=== PATIENT | male | born 1945 | race Caucasian/White ===

== ENCOUNTER → 2021-12-18 12:24 | Outpatient (BNVA) | payer MEDICARE, SELFPAY | PROVIDERS: PCP Nurse Practitioner Family; Referring Provider Nurse Practitioner Family; Visit Provider Specialist | DX: G44.84 Primary exertional headache (principal); M47.16 Other spondylosis with myelopathy, lumbar region; Z98.1 Arthrodesis status | CPT/HCPCS: 99204; 99205 ==

== ENCOUNTER 2022-02-05 06:57 | Outpatient (CLI) | payer MEDICARE, SELFPAY ==
--- NOTE | 2022-02-05 08:00 | MR_ITS ---
WS: [id number] MRI HEAD WITHOUT CONTRAST TECHNIQUE: Sagittal T1, T2 axial, T2 axial FLAIR, axial and coronal T1 images, axial susceptibility w eighted imaging, axial diffusion weighted images, and coronal T2 images were obtained. CLINICAL INFORMATION: R51.9 - Headache, unspecified COMPARISON: None. FINDINGS: No evidence of restricted diffusion to suggest acute ischemia. Ventricular system and basal cisterns are patent. Mild small vessel changes. Mild to moderate parenchymal volume loss. 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 Normal vascular flow voids at the skull base. Pansinusitis wit h partial opacification of the paranasal sinuses. Inspissated secretions in the sphenoid sinuses. Rec ommend correlation for sinusitis including fungal sinusitis. Normal optic chiasm and pituitary infundibulum. Normal sella. Moderate symmetric atrophy temporal lob es and hippocampal formations. Normal cavernous sinuses and Meckel's cave. No hemosiderin on suscepti marlene weighted images. MR/MR head wo con* [id number] IMPRESSION: 1. No evidence of restricted diffusion to suggest acute ischemia. 2. Mild small vessel changes with mild to moderate parenchymal volume loss. 3. 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 4. Paranasal sinusitis with inspissated secretions in the sphenoid sinus. Matthew elation for sinusitis including fungal sinusitis. 5. Normal optic chiasm and pituitary infundibulum. 6. Moderate symmetric atrophy temporal lobes and hippocampal formations. 7. No hemosiderin on susceptibly weighted images.
--- NOTE | 2022-02-05 08:45 | MR_ITS ---
WS: [id number] MRI LUMBAR SPINE NONCONTRAST TECHNIQUE: Sagittal T1, T2 and STIR imaging. Axial T1 and T2 imaging. 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 FINDINGS: Mild lumbar curve. No acute compression. Slight anterolisthesis L4 on L5. L1-L2: Mild annular bulging. Mild facet arthropathy. Spinal canal and foramen are patent. L2-L3: Slight annular bulging. Mild facet arthropathy. Spinal canal and foramen are patent. L3-L4: Mild annular bulging. Moderate facet arthropathy with ligamentum flavum flavum hypertrophy. Mo derate to severe central canal stenosis. Impingement subarticular recess RIGHT greater than LEFT. Mod erate RIGHT foraminal narrowing with impingement on the exiting RIGHT L3 nerve root. L4-L5: Grade 1 anterolisthesis L4 on L5. Mild annular bulging with slight effacement of ventral theca l sac. Mild central canal stenosis. Evidence of prior laminectomy defects at this level. Mild bilater al foraminal narrowing. Moderate facet arthropathy ligamentum flavum hypertrophy. L5-S1: Mild annular bulging with a small annular tear. Slight effacement of ventral thecal sac. Spina l canal and foramen are patent. Mild facet arthropathy. Straightening of the normal cervical lordosis. Disc osteophyte protrusions C5-C6 and C6-C7 with mild to moderate central canal stenosis. Grade 1 anterolisthesis C7 on T1. Partially visualized lobulated soft tissue mass near the GE junction is indeterminant and incompletely visualized. This may represen t partially visualized intrathoracic stomach. Recommend further evaluation with CT chest. Visualized pelvic bony structures: Normal. Paravertebral soft tissues: Normal. MR/MR lumbar spine wo con* [id number] IMPRESSION: 1. Mild lumbar curve. No acute compression. Slight anterolisthesis L4 on L5. 2. Moderate to severe central canal stenosis L3-L4 due to disc bulging with fa cet arthropathy and ligamentum flavum hypertrophy. Slight impingement traversin g RIGHT greater than LEFT L4 nerve roots. 3. RIGHT L3-L4 foraminal protrusion impinges the exiting L3 nerve root with mo derate RIGHT foraminal narrowing. 4. Mild central canal stenosis L4-L5 with grade 1 anterolisthesis. Evidence of prior laminectomy defects at this level. 5. SAMY disc osteophyte protrusions in the cervical spine at C5-C6 and C6-C7 wi th mild to moderate central canal stenosis. Recommend further evaluation with c ervical spine MRI. 6. Lobulated soft tissue mass at the GE junction may represent partially visua lized intrathoracic stomach but indeterminant. Recommend further evaluation wit h CT chest.
== END 2022-02-05 06:58 | disposition home or self-care (01) ==
LOC: RAD 06:59
PROVIDERS: PCP Nurse Practitioner Family; Visit Provider Specialist
DX: R51.9 Headache, unspecified (principal); M47.16 Other spondylosis with myelopathy, lumbar region; M48.061 Spinal stenosis, lumbar region without neurogenic claudication; M51.26 Other intervertebral disc displacement, lumbar region; M25.78 Osteophyte, vertebrae; G31.9 Degenerative disease of nervous system, unspecified; I63.9 Cerebral infarction, unspecified
CPT/HCPCS: 70551; 72148

== ENCOUNTER 2022-03-13 14:21 | Inpatient (IN) | payer MEDICARE, SELFPAY ==
[2022-03-13] VITALS (38 sets, daily range): BP systolic 133–177; BP diastolic 78–93; PULSE 76–127; RESP 15–29; TEMP 36.7; O2SAT 91–98; BMI 30.2
--- NOTE | 2022-03-13 15:22 | CT_ITS ---
WS: [id number] CT HEAD TECHNIQUE: Noncontrast CT of the head obtained from the skullbase to the vertex. CLINICAL INFORMATION: headache COMPARISON: MRI February 05, 2022 DLP: 955.[address] scans at [facility] use at least one of these dose optimization techniques: automated e xposure control; mA and/or kV adjustment per patient size (includes targeted exams where dose is matc hed to clinical indication); or iterative reconstruction. FINDINGS: No evidence of intracranial hemorrhage or mass effect. Ventricular system and basal cisterns are landis nt. Mild small vessel changes with moderate parenchymal volume loss. No extra-axial fluid collections . No evidence of mass or mass effect. Chronic lacunar infarcts in the cerebellum. Pansinusitis similar in appearance to February 05, 2022. Partial opacification frontal sinuses and ethmoid air cells. Fluid within the maxillary sinuses. Head Porter shantel appearing opacification of the sphenoid sinuses with inspissated secretions and bony remodeling. Mastoid air cells are well aerated. CT/CT head wo con* [id number] IMPRESSION: 1. No evidence of intracranial hemorrhage or mass effect. 2. Mild small vessel changes. Moderate parenchymal volume loss. 3. Diffuse pansinusitis similar in appearance to MRI February 05, 2022. Fluid wit hin the maxillary sinuses with dense inspissated secretions in the sphenoid sin us. Partial opacification frontal sinuses and ethmoid air cells. Chronic bony remodeling suggestive of chronic or recurrent sinusitis. 4. No other significant findings.
--- NOTE | 2022-03-13 15:23 | ECG_ITS ---
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 Measurements Intervals [place] Rate: 80 P: 24 WY: 215 QRS: -66 QRSD: 166 T: 86 QT: 432 QTc: 500 Interpretive Statements SINUS RHYTHM WITH FIRST DEGREE AV BLOCK RIGHT BUNDLE BRANCH BLOCK LEFT VENTRICULAR HYPERTROPHY AND ST-T CHANGE ST DEPRESSION, CONSIDER SUBENDOCARDIAL INJURY No previous ECG available for comparison Electronically Signed On 03-13-2022 20:17:40 CDT by Cristela Green M.D. [id number]
[2022-03-13 15:27] LABS: Basophils # 0.1 10^3/uL (0.0-0.1); Basophils % 0.5 %; Eosinophils % 0.3 %; Hematocrit 39.4 % (42.0-52.0); Hemoglobin 12.4 g/dL (11.7-16.6); Lymphocytes # 1.1 10^3/uL (0.8-4.8); Lymphocytes % 8.3 %; Mean Corpuscular HGB Conc 31.5 g/dL (30.0-36.0); Mean Corpuscular Hemoglobin 24.7 pg (28.0-34.0); Mean Corpuscular Volume 78.5 fl (80-94); Mean Platelet Volume 11.8 fL (7.4-10.4); Monocytes # 1.2 10^3/uL (0.2-0.9); Monocytes % 8.8 %; Neutrophils # 10.98 10^3/uL (1.8-7.7); Neutrophils % 81.7 %; Nucleated Red Blood Cells % 0 %; Platelet Count 191 10^3/cmm (130-400); Red Blood Count 5.02 10^6/uL (4.1-5.3); Red Cell Distribution Width 15.1 % (12.1-15.1); White Blood Count 13.5 10^3/uL (4.0-10.0)
--- NOTE | 2022-03-13 15:50 | W.ED.HA ---
HPI - Headache General: Chief Complaint: Headache Stated Complaint: HEADACHE W/NAUSEA Time Seen by Provider: 03/13/22 14:49 History of Present Illness: 77-year-old male presents to the emergency department chief complaint of having acute on chronic ongoing headache reports he has been previously being seen by neurology and had MRI imaging obtained that came back unremarkable. Reports he has a history of known lumbar spine issues reports he has been having ongoing issues with headaches ongoing last 3 to 4 years almost continuously. He reports no known history of underlying head injury or anything that could contribute. He reports his abdomen taking wwqj-hqn-[id number] medications yet improves headache reports is rated at a moderate level reports he did prior to arrival had 1 episode of nonbloody emesis with his headache Associated symptoms: Reports nausea and vomiting; Deny chest pain, fever(s), malaise or rash Review of Systems General: Reports: 10 or more systems reviewed and unremarkable except in HPI and below Const: Denies: fever(s), chills, fatigue or malaise Eyes: Denies: change in vision or blurry vision Card: Denies: chest pain or palpitations Resp: Denies: dyspnea or productive cough GI: Reports: nausea and vomiting; Denies: abdominal pain : Denies: flank pain Musc: Denies: extremity pain or extremity swelling Skin/Breast: Denies: rash or pruritus Neuro: Reports: headache(s) Psych: Denies: anxiety or depression Edward/Lymph: Denies: easy bleeding All/Imm: Denies: urticaria, throat swelling or facial swelling PFSH ED PFSH: Medical History (Updated 03/13/22 @ 18:48 by Brock Marion) Bilateral headaches CAD (coronary artery disease) Hyperlipidemia Hypertension Non-insulin dependent type 2 diabetes mellitus Surgical History (Updated 03/13/22 @ 18:00 by Mark Jackson MD) History of heart artery stent Family History (Updated 03/13/22 @ 18:00 by Mark Jackson MD) Mother Diabetes Brain tumor Social History (Updated 03/13/22 @ 18:00 by Mark Jackson MD) Smoking and tobacco status: former smoker Alcohol intake: never Substance/Drug Use: never Physical Exam Const: COMMON NORMALS: no acute distress, patient oriented x3 and healthy appearing HENMT: COMMON NORMALS: normocephalic and atraumatic HEAD & SCALP: normocephalic and atraumatic Eye: COMMON NORMALS: Equal, round and reactive pupils present and EOMs intact bilaterally PUPIL: Yes Equal, round and reactive pupils present Neck/C-Spine: COMMON NORMALS: full ROM, supple and no JVD Lymph: LYMPHATIC: no lymphadenopathy noted Chest: COMMONS NORMALS: normal inspection of the chest and normal palpation of entire chest wall Resp: COMMON NORMALS: normal respiratory effort, No retractions and clear to auscultation bilaterally EFFORT & INSPECTION: Yes able to speak in complete sentences and Yes symmetric chest movement AUSCULTATION: clear to auscultation bilaterally Cardio: COMMON NORMALS: no JVD, regular rate and regular rhythm RATE: regular rate RHYTHM: regular rhythm GI: COMMON NORMALS: Normal to inspection, nondistended, normoactive bowel sounds present, Soft to palpation and non-tender INSPECTION: Yes normal to inspection PALPATION: Yes Soft to palpation : COMMON NORMALS: Yes no CVA tenderness BLADDER/KIDNEY EXAM: Yes no CVA tenderness Back/Pelvis: COMMON NORMALS: no CVA tenderness Extremity: COMMON NORMALS: normal to inspection and full ROM Neuro: COMMON NORMALS: patient oriented x3, CN's II-XII intact bilaterally, moves all extremities and no focal motor deficits Psych: COMMON NORMALS: mental status grossly normal, Normal thought process present, cooperative and normal affect THOUGHT PROCESS: Normal thought process present Skin: COMMON NORMALS: no rashes or lesions noted GENERAL SKIN EXAM: no rashes or lesions noted Course Vital Signs: Vital signs: Vital Signs Temperature 98.0 F 03/13/22 14:48 Pulse Rate 83 03/13/22 14:57 Respiratory Rate 15 03/13/22 14:48 Blood Pressure 177/83 03/13/22 14:57 Pulse Oximetry 96 03/13/22 14:57 MDM - Headache Medical Decision Making On exam no focal neurodeficits appreciated patient appears to be in mild distress due to pain IV will be established basic lab work imaging will be obtained medication provided for migrainous headaches we will continue to follow. Patient's first cardiac troponin was notably elevated in the 400 range patient also had EKG changes suggestive of a posterior [place] contacted Dr. De Luna on-call school custodian that came to the patient to evaluate the patient recommends start the patient on a heparin drip bolusing with Effient which will be taken the patient to the Stranding Machine Operator Helper in the morning for his EKG changes as well as lab work. Just prior to transfer to the ICU patient went into cardiac arrest lasting about 15 seconds when he became unresponsive in which we witnessed 2 additional episodes lasting about 15 to 20 seconds in which it was noted the patient went into a fine V. fib arrest prior to that he was in SVT/V. tach. IV fluids were initiated patient was provided a dose of amiodarone Dr. Porter was contacted that helps assess the patient in which patient to go immediately to the Stranding Machine Operator Helper for further assessment and management due his current instability. Patient did require 1 quick episode of CPR lasting about 4-5 compressions. In which he spontaneously woke up this was witnessed 3 times per staff. Patient remains in guarded condition this time. Lab Data : 03/13/22 15:00 03/13/22 15:[address] 03/13/22 IMPRESSION: 1. No evidence of intracranial hemorrhage or mass effect. 2. Mild small vessel changes. Moderate parenchymal volume loss. 3. Diffuse pansinusitis similar in appearance to MRI February 05, 2022. Fluid within the maxillary sinuses with dense inspissated secretions in the sphenoid sinus. Partial opacification frontal sinuses and ethmoid air cells. Chronic bony remodeling suggestive of chronic or recurrent sinusitis. 4. No other significant findings. Laboratory Results WBC 13.5 10^3/uL (4.0-10.0) H 03/13/22 15:00 RBC 5.02 10^6/uL (4.1-5.3) 03/13/22 15:00 Hgb 12.4 g/dL (11.7-16.6) 03/13/22 15:00 Hct 39.4 % (42.0-52.0) L 03/13/22 15:00 MCV 78.5 fl (80-94) L 03/13/22 15:00 MCH 24.7 pg (28.0-34.0) L 03/13/22 15:00 MCHC 31.5 g/dL (30.0-36.0) 03/13/22 15:00 RDW 15.1 % (12.1-15.1) 03/13/22 15:00 Plt Count 191 10^3/cmm (130-400) 03/13/22 15:00 MPV 11.8 fL (7.4-10.4) H 03/13/22 15:00 Neut % (Auto) 81.7 % 03/13/22 15:00 Lymph % (Auto) 8.3 % 03/13/22 15:00 O'Brien % (Auto) 8.8 % 03/13/22 15:00 Eos % (Auto) 0.3 % 03/13/22 15:00 Baso % (Auto) 0.5 % 03/13/22 15:00 Neut # (Auto) 10.98 10^3/uL (1.8-7.7) H 03/13/22 15:00 Lymph # (Auto) 1.1 10^3/uL (0.8-4.8) 03/13/22 15:00 O'Brien # (Auto) 1.2 10^3/uL (0.2-0.9) H 03/13/22 15:00 Eos # (Auto) 0.0 10^3/uL (0.0-0.8) 03/13/22 15:00 Baso # (Auto) 0.1 10^3/uL (0.0-0.1) 03/13/22 15:00 Nucleated RBC % (auto) 0 % 03/13/22 15:00 Nucleated RBCs # 0.0 /100WBC 03/13/22 15:00 Sodium 137 mmol/L (136-145) 03/13/22 15:00 Potassium 3.9 mmol/L (3.5-5.1) 03/13/22 15:00 Chloride 103 mmol/L (98-107) 03/13/22 15:00 Carbon Dioxide 19 mmol/L (22-29) L 03/13/22 15:00 Anion Gap 18.9 (5-19) 03/13/22 15:00 BUN 10 mg/dL (8-23) 03/13/22 15:00 Creatinine 0.7 mg/dL (0.7-1.2) 03/13/22 15:00 GFR Calculation Not Reportable 03/13/22 15:00 Glucose 150 mg/dL (65-115) H 03/13/22 15:00 Calculated Osmolality 286 mOsm/kg (285-295) 03/13/22 15:00 Calcium 8.6 mg/dL (8.5-10.5) 03/13/22 15:00 Total Bilirubin 0.3 mg/dL (0.15-1.2) 03/13/22 15:00 AST 40 U/L (0-40) 03/13/22 15:00 ALT 14 U/L (0-41) 03/13/22 15:00 Alkaline Phosphatase 108 IU/L (40-130) 03/13/22 15:00 Troponin T Gen 5 ng/L 418 ng/L (0-15) H* 03/13/22 15:00 NT-Pro-B Natriuret Pep 991 pg/mL (0-450) H 03/13/22 15:00 Total Protein 6.6 g/dL (6.6-8.7) 03/13/22 15:00 Albumin 4.3 g/dL (3.5-5.2) 03/13/22 15:00 Globulin 2.3 g/dL (1.3-4.6) 03/13/22 15:00 Discharge Plan Discharge Patient Disposition: Admitted As Inpatient Admit Provider: Mark Jackson Clinical Impression: Unstable angina, Elevated troponin, Non-sustained ventricular tachycardia, Cardiac arrest with ventricular fibrillation Condition: Stable Coding Level of Care Code ED Interventional Neuroradiologist for Chg Fwd Exam Comprehensive
[2022-03-13 15:52] LABS: Alanine Aminotransferase 14 U/L (0-41); Albumin Level 4.3 g/dL (3.5-5.2); Alkaline Phosphatase 108 IU/L (40-130); Anion Gap 18.9 (5-19); Aspartate Amino Transferase 40 U/L (0-40); Blood Urea Nitrogen 10 mg/dL (8-23); Calcium 8.6 mg/dL (8.5-10.5); Carbon Dioxide 19 mmol/L (22-29); Chloride 103 mmol/L (98-107); Globulin 2.3 g/dL (1.3-4.6); Glucose 150 mg/dL (65-115); Osmolality Calculated 286 mOsm/kg (285-295); Potassium 3.9 mmol/L (3.5-5.1); Sodium 137 mmol/L (136-145); Total Bilirubin 0.3 mg/dL (0.15-1.2); Total Protein 6.6 g/dL (6.6-8.7)
[2022-03-13] MEDS: ketorolac 30 mg/mL INJ IVP (15:52)
[2022-03-13] MEDS: ondansetron 2 mg/ML SDV 2 mL 4 MG IVP (15:52)
[2022-03-13] MEDS: dexamethasone 10 mg/mL INJ IVP (15:52)
[2022-03-13] MEDS: diphenhydrAMINE 50 mg/mL SDV 1mL 12.5 MG IVP (15:52)
[2022-03-13] MEDS: sodium chloride 0.9% 1,000 ML 999 ML IV (15:52)
[2022-03-13] MEDS: magnesium sulfate premix 2 GM/50 ML PIGGYBACK IV (15:52)
[2022-03-13 16:13] LABS: Troponin T (5th) Once 418 ng/L (0-15)
[2022-03-13] MEDS: aspirin 81 mg Chew Tablet 324 MG PO (16:27)
[2022-03-13] MEDS: fentaNYL 50 mcg/mL INJ 2mL IVP (16:28)
--- NOTE | 2022-03-13 17:20 | P.CONIM_ITS ---
Providers/Reason For Consult Consulting Physician/Specialty*: Darron De Luna MD/Cardiology Reason for Consult*: NSTEMI Requesting Physician: Dr Marion Attending Physician: Dr Jackson Primary Care Provider: KAYLI Nichole History of Present Illness History of Present Illness Chalo Alvarenga is a 77 year old male with past medical history of diabetes, hypertension, hyperlipidemia, CAD status post multiple stents who presented to the hospital with severe temporal headaches. His symptoms were rather atypical and he mentioned that pain was starting in the temporal area of the head bilaterally and radiating down to the chest. Headaches have been there on and off for the last 4 months. Today at 9 AM about 8 hours back he started having severe headache that radiated down to the neck and jaw. He had persistent pain for about 4 hours and then it resolved. He decided to come to the hospital. His initial troponin was elevated and was over 400. EKG showed dynamic EKG changes with diffuse ST depressions and incomplete right bundle branch block. Initially plan was to perform coronary angiogram tomorrow however patient went briefly into V. fib arrest. It did not achieve ROSC within a few seconds. He had a second brief episode lasting few seconds. We decided to emergently taken to the cardiac Painter Airbrush. CT head ruled out head bleed. Coronary angiogram demonstrated MARSH BUGGY OPERATOR of distal RCA and significant in-stent restenosis of proximal RCA. Left main artery had significant diffuse disease and ostial LAD had severe 95% hazy stenosis. Patient underwent successful revascularization from left main into LAD that was guided by IVUS with BERNICE x1. He left the Painter Airbrush in a stable condition Review of Systems Const: Denies: fever(s), chills, fatigue or malaise ENMT: Denies: nasal congestion Card: Reports: swelling of feet/ankles; Denies: chest pain, palpitations, edema, lightheadedness or syncope Resp: Denies: dyspnea, productive cough, non-productive cough or wheezing GI: Denies: abdominal pain, nausea, vomiting, hematemesis or hematochezia : Denies: flank pain, difficulty urinating, dysuria or urinary frequency Musc: Denies: neck pain Skin/Breast: Denies: rash or skin swelling Neuro: Denies: dizziness or vertigo Endo: Denies: polyuria or polydipsia Medications/Allergies Home Medications Medication Instructions Recorded Confirmed Last Taken Type cyclobenzaprine 10 mg tablet 10 mg PO TID PRN 12/18/21 03/13/22 Unknown History glimepiride 1 mg tablet 1 mg PO QAM 12/18/21 03/13/22 03/12/22 History losartan 25 mg tablet 25 mg PO QAM 12/18/21 03/13/22 03/12/22 History rosuvastatin 20 mg tablet 20 mg PO BEDTIME 12/18/21 03/13/22 03/12/22 History silodosin 8 mg capsule 8 mg PO QAM 12/18/21 03/13/22 03/12/22 History hydrocodone 10 mg-acetaminophen 1 tab PO DAILY PRN 14 Days #30 tab 02/28/22 03/13/22 03/11/22 Rx 325 mg tablet pt states out amitriptyline 25 mg tablet 25 mg PO QAM 03/13/22 03/13/22 03/12/22 History aspirin 81 mg tablet,delayed 81 mg PO QAM 03/13/22 03/13/22 03/12/22 History release gewzvctinw-skpqbicuvbwkz-xpsjxuax 1 tab PO Q8H PRN 03/13/22 03/13/22 Unknown History 50 mg-325 mg-40 mg tablet metformin 500 mg tablet,extended 500 mg PO BID 03/13/22 03/13/22 03/13/22 07:00 History release 24 hr terbinafine HCl 250 mg tablet 250 mg PO DAILY 03/13/22 03/13/22 03/11/22 History finished 03/11/22 Allergies Allergy/AdvReac Type Severity Reaction Status Date / Time clopidogrel [From Plavix] Allergy Mild rash Verified 03/13/22 16:33 PFSH Acute PFSH: Medical History (Updated 03/13/22 @ 21:10 by Darron De Luna M.D) Bilateral headaches CAD (coronary artery disease) Hyperlipidemia Hypertension Non-insulin dependent type 2 diabetes mellitus Surgical History History of heart artery stent Family History Mother Diabetes Brain tumor Social History Smoking and tobacco status: former smoker Alcohol intake: never Substance/Drug Use: never Vitals/I&O/Wt Last Vital Signs Temp 98.0 F 03/13/22 14:48 Pulse 83 03/13/22 14:57 Resp 15 03/13/22 14:48 BP 177/83 03/13/22 14:57 Pulse Ox 96 03/13/22 14:57 Weight last 48 hrs Weight 205 lb Physical Exam Narrative: GENERAL: Patient is alert, awake and oriented x3. [] NECK: No jugular vein distension. [] HEENT: No cyanosis. No icterus. No pallor. [] HEART: Regular S1 and S2. No murmur, rub or gallop. [] LUNGS: Clear to auscultate bilaterally. [] ABDOMEN: Soft, nontender and nondistended. Positive bowel sounds. No guarding, rebound or tenderness. [] CENTRAL NERVOUS SYSTEM: Grossly nonfocal. [] EXTREMITIES: Lower extremities with 1+ edema bilaterally. Pulses palpable in the lower extremities, both dorsalis pedis and posterior tibial. [] Data : 03/13/22 15:00 03/13/22 15:00 A&P Assessment and plan (1) Cardiac arrest with ventricular fibrillation: Status: Acute (2) Non-ST elevation SD (NSTEMI): Status: Acute (3) CAD (coronary artery disease): Status: Acute (4) Non-insulin dependent type 2 diabetes mellitus: Status: Acute (5) Hyperlipidemia: Status: Acute (6) Hypertension: Status: Acute Plan Patient had presented initially with headaches radiating down to the chest. Troponins were significantly elevated. Given his symptoms had resolved initial plan was to perform coronary angiogram tomorrow however he had brief episodes of V. fib x2. Painter Airbrush was emergently activated and coronary angiogram was performed. RCA is MARSH BUGGY OPERATOR. Left main into proximal LAD has severe stenosis that underwent successful revascularization with BERNICE x1. Continue aspirin and Brilinta for at least 1 year. High intensity statin therapy. Order echocardiogram Transfer to ICU Continue amiodarone for now. May consider CTA chest if continues having chest discomfort symptoms. Thank you for involving us with care of this patient. We will continue to follow. Please call with questions. Coding Level of Care Code Acute Coffin Maker for Lynn Jacobs Diagnoses Cardiac arrest with ventricular fibrillation I46.9; I49.01 Non-ST elevation SD (NSTEMI) I21.4 CAD (coronary artery disease) I25.10 Non-insulin dependent type 2 diabetes mellitus E11.9 Hyperlipidemia E78.5 Hypertension I10
[2022-03-13] MEDS: heparin 5,000 unit/mL INJ 1 mL 4000 UNIT IVP (17:45)
[2022-03-13] MEDS: heparin drip 25,000 UNIT/500 ML PREMIX 26.04 UNIT IV (17:47)
--- NOTE | 2022-03-13 17:52 | P.HP_ITS ---
Providers/Chief Complaint Admitting Physician: Mark Jackson MD Primary Care Provider: KAYLI Nichole Chief Complaint: HEADACHE W/NAUSEA History of Present Illness Chalo Alvarenga is a 77 year old male with a past medical history of uao-ulbsmsc-dypkrqqvp type 2 diabetes mellitus, hypertension, hyperlipidemia, CAD status post 6 stents, recent history of severe headaches who presents to [facility] due to severe headaches. Patient tells me that what brought him to the hospital with severe headaches. He tells me that he has had these headaches since August. He tells me that he is here because the intensity and the severity and the debility of these headaches has increased. He describes his headaches as bilateral temporal headaches,, on onset and attacks, associate with blurry vision, sometimes associated with eye discharge, nasal discharge, associate with sometimes with neck pain, he tells me that these headaches typically radiate from his temples, down his neck, down into his chest. He never has isolated chest pain. Denies any recent worsening shortness of breath. No pain radiating down his arms. Denies any photophobia. No phonophobia. No aura. Nothing really helps with the headaches. They can last a few minutes to a few hours. Typically start and start on their own. He has never had headaches before August. He recently saw Dr. Acharya, had an MRI with no acute findings. No facial droop, no slurring of his words, no paresthesias. Denies his headache being the worst headache of his life. He was given amitriptyline for his headaches. However his headaches persist. Review of Systems Const: Denies: fever(s), chills, fatigue or malaise ENMT: Denies: nasal congestion Card: Reports: swelling of feet/ankles; Denies: chest pain, palpitations, edema, lightheadedness or syncope Resp: Denies: dyspnea, productive cough, non-productive cough or wheezing GI: Denies: abdominal pain, nausea, vomiting, hematemesis or hematochezia : Denies: flank pain, difficulty urinating, dysuria or urinary frequency Musc: Denies: neck pain Skin/Breast: Denies: rash or skin swelling Neuro: Denies: dizziness or vertigo Endo: Denies: polyuria or polydipsia Medications/Allergies Home Medications Medication Instructions Recorded Confirmed Last Taken Type cyclobenzaprine 10 mg tablet 10 mg PO TID PRN 12/18/21 03/13/22 Unknown History glimepiride 1 mg tablet 1 mg PO QAM 12/18/21 03/13/22 03/12/22 History losartan 25 mg tablet 25 mg PO QAM 12/18/21 03/13/22 03/12/22 History rosuvastatin 20 mg tablet 20 mg PO BEDTIME 12/18/21 03/13/22 03/12/22 History silodosin 8 mg capsule 8 mg PO QAM 12/18/21 03/13/22 03/12/22 History hydrocodone 10 mg-acetaminophen 1 tab PO DAILY PRN 14 Days #30 tab 02/28/22 03/13/22 03/11/22 Rx 325 mg tablet pt states out amitriptyline 25 mg tablet 25 mg PO QAM 03/13/22 03/13/22 03/12/22 History aspirin 81 mg tablet,delayed 81 mg PO QAM 03/13/22 03/13/22 03/12/22 History release xrbuvlyaoe-rjyaviiglwpae-djrysant 1 tab PO Q8H PRN 03/13/22 03/13/22 Unknown History 50 mg-325 mg-40 mg tablet metformin 500 mg tablet,extended 500 mg PO BID 03/13/22 03/13/22 03/13/22 07:00 History release 24 hr terbinafine HCl 250 mg tablet 250 mg PO DAILY 03/13/22 03/13/22 03/11/22 History finished 03/11/22 Allergies Allergy/AdvReac Type Severity Reaction Status Date / Time clopidogrel [From Plavix] Allergy Mild rash Verified 03/13/22 16:33 PFSH Acute PFSH: Medical History (Updated 03/13/22 @ 18:01 by Mark Jackson MD) Bilateral headaches CAD (coronary artery disease) Hyperlipidemia Hypertension Non-insulin dependent type 2 diabetes mellitus Surgical History (Updated 03/13/22 @ 18:00 by Mark Jackson MD) History of heart artery stent Family History (Updated 03/13/22 @ 18:00 by Mark Jackson MD) Mother Diabetes Brain tumor Social History (Updated 03/13/22 @ 18:00 by Mark Jackson MD) Smoking and tobacco status: former smoker Alcohol intake: never Substance/Drug Use: never Vitals/I&O/Wt Last Vital Signs Temp 98.0 F 03/13/22 14:48 Pulse 83 03/13/22 14:57 Resp 15 03/13/22 14:48 BP 177/83 03/13/22 14:57 Pulse Ox 96 03/13/22 14:57 03/13/22 03/13/22 03/13/22 06:59 14:59 22:59 Intake Total 1050 / 1050 Balance 1050 / 1050 Weight last 48 hrs Weight 92.986 kg Physical Exam Const: COMMON NORMALS: no acute distress and patient oriented x3 HENMT: COMMON NORMALS: normocephalic HEAD & SCALP: normocephalic Eye: COMMON NORMALS: Equal, round and reactive pupils present and EOMs intact bilaterally OTHER: No temporal tenderness Neck/C-Spine: COMMON NORMALS: no JVD Resp: COMMON NORMALS: normal respiratory effort, No retractions, No use of accessory muscles and clear to auscultation bilaterally AUSCULTATION: clear to auscultation bilaterally Cardio: COMMON NORMALS: no JVD, regular rate, regular rhythm, S1 normal heart sound present and S2 normal heart sound present RATE: regular rate RHYTHM: regular rhythm HEART SOUNDS: S1 normal heart sound present and S2 normal heart sound present GI: COMMON NORMALS: Normal to inspection, nondistended, normoactive bowel sounds present, Soft to palpation, non-tender, No hepatosplenomegaly present, no masses and no bruits PALPATION: Yes Soft to palpation and Yes No hepatosplenomegaly present Extremity: COMMON NORMALS: capillary refill normal, no clubbing, cyanosis or edema, no calf tenderness and no pedal edema Neuro: COMMON NORMALS: patient oriented x3, CN's II-XII intact bilaterally, moves all extremities and no focal motor deficits Psych: COMMON NORMALS: mental status grossly normal Data : 03/13/22 15:00 03/13/22 15:00 A&P Assessment and plan (1) Non-ST elevation OH (NSTEMI): Status: Acute (2) Bilateral headaches: Status: Acute Plan Non-ST elevation OH -History of CAD status post stenting x6 -Patient's presentation is atypical in nature, no isolated chest pain -EKG shows ST depressions in inferior leads and anterior leads -Troponin 418 -No active chest pain -Has received aspirin, placed on a heparin drip by emergency provider, in addition Dr. De Luna been consulted, planning cardiac catheterization tomorrow Plan -Admit to CSU -Serial EKGs, serial troponins, telemetry monitoring -Monitor for chest pain -Aspirin, statin, low-dose Coreg, has been loaded with Brilinta -Cardiac echo -Continue heparin drip -CODE STATUS, DNR/DNI, confirmed with patient, at bedside -Heparin for DVT prophylaxis Headaches -Etiology uncertain -Sounds like cluster headaches versus temporal arteritis -Cardiac echo, carotid artery ultrasound -ESR, TSH -CT of the head 1.? No evidence of intracranial hemorrhage or mass effect. 2.? Mild small vessel changes. Moderate parenchymal volume loss. 3.? Diffuse pansinusitis similar in appearance to MRI February 05, 2022. Fluid within the maxillary sinuses with dense inspissated secretions in the sphenoid sinus. Partial opacification? frontal sinuses and ethmoid air cells. Chronic bony remodeling suggestive of chronic or recurrent sinusitis. 4.? No other significant findings. -MRI recently done 1.? No evidence of restricted diffusion to suggest acute ischemia. 2.? Mild small vessel changes with mild to moderate parenchymal volume loss. 3.? 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 4.? Paranasal sinusitis with inspissated secretions in the sphenoid sinus. Correlation for sinusitis including fungal sinusitis. 5.? Normal optic chiasm and pituitary infundibulum. 6.? Moderate symmetric atrophy temporal lobes and hippocampal formations. 7.? No hemosiderin on susceptibly weighted images. 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
[2022-03-13] MEDS: ticagrelor 90 mg Tablet 180 MG PO (17:54)
[2022-03-13 18:22] LABS: NT Pro B Type Natriuretic Pept 991 pg/mL (0-450)
[2022-03-13 19:04] LABS: ABG PCO2 24.3 mmHg (35-45); ABG PH Result 7.45 (7.35-7.45); Alveolar-Arterial Oxygen Gradi 5.7 mmHg (5-10); Arterial Blood Gas Hematocrit 37.4 % (42-52); Base Excess ABG -5.8 mmol/L (-2.0-2.0); Blood Gas Allen Test Pos; Blood Gas Operator Identificat CAK; Blood Gas Sample Site Brachial, left; Blood Gas Sample Type Arterial; Carboxyhemoglobin 0.7 %THgb (0.4-20.1); HCO3 ABG 16.7 mmol/L (22-26); HGB O2 Sat 98.2 % (95-100); Ionized Calcium Level - ABG 1.2 mmol/L (1.1-1.4); Methemoglobin 0.7 % (0.4-1.5); Oxygen Device NC; Oxygen Saturation ABG 99.5; Potassium Level - ABG 4.1 mmol/L (3.5-5.0); Total Hemoglobin 12.2 g/dL (14-18)
--- NOTE | 2022-03-13 19:10 | XACV_ITS ---
Exam Room: [facility] Ht: 175 cm Wt: 93 kg BSA: 2.15 m2 Gender: Male : 1945 Any Known Allergies: Plavix Exam Priority: Routine Procedure(s): Procedure Description: Diagnostic procedure Procedure Description: PCI procedure Procedure Description: Coronary IVUS Procedure Description: Drug Eluting Coronary Stent Procedure Description: PTCA Procedure Description: Miscellaneous Procedure Description: Angio-Seal Procedure Description: ACT Procedure Description: Coronary Angiography Diagnostic Cath Status: Emergency Diagnostic Findings * INDICATION: Patient presented with NSTEMI and had vfib arrest in the ER. * Circumflex has no disease. * Left Main to Proximal Left Anterior Descending: obstructive 60% stenosis, DONAVAN: 3 flow. * Proximal Left Anterior Descending: severe 90% stenosis, DONAVAN: 3 flow. * Distal Right Coronary Artery: subtotal occlusion, DONAVAN: 1 flow. * Coronary angiography shows right dominance. PCI Status: Emergency PCI Indication: Other Interventional Findings * PROCEDURE DETAIL: We engaged left main artery with XB 3.5 guide catheter. With engagement of left main artery, there was dampening of pressure. Severe LAD stenosis was predilated with 2.5 x 12 mm noncompliant balloon. We then performed IVUS evaluation of left main and LAD artery. Left main was found to be severely narrowed. We then decided to put 3.0 x 30 mm resolute Александр drug-eluting stent from ostial left main to proximal LAD. This was followed by post dilation of the left main segment with 3.25 x 8 mm noncompliant balloon. At this time final angiogram was performed that showed excellent stent expansion, no residual stenosis and DONAVAN-3 flow. Guidewire and guide catheter were removed and patient left the Repair Table Operator in a stable condition.. * Left Main to Proximal Left Anterior Descendin% stenosis treated with a Drug Eluting Stent. 0% residual stenosis, DONAVAN: 3 flow. * Proximal Left Anterior Descendin% stenosis treated with a AB TREK 2.50X12 RX BALLOON, ANGELITA Espitia АЛЕКСАНДР 3.0X30 BERNICE, and MDDhiraj ANDREA EUPHORA RX 3.86X56UF BALLOON. 0% residual stenosis, DONAVAN: 3 flow. Conclusions 1. Severe left main to LAD stenosis s/p successful revascularization with BERNICE X 1. 2. Left Main to Proximal Left Anterior Descending was treated with a Drug Eluting Stent. 3. Proximal Left Anterior Descending was treated with a Balloon, Drug Eluting Stent, and Balloon. Recommendations * Transfer to ICU. * Aspirin and brilinta for atleast 1 year. * High intensity statin therapy. * Beta elver therapy. * Ordering echocardiogram. Interventional RX Recommendation: PCI w/o planned CABG Diagnostic RX Recommendation: PCI w/o planned CABG Anticoagulation: Heparin Pressures Phase:Rest AO : 88 / 53 ( 69 ) @ 3:31:49 PM 94 / 60 ( 75 ) @ 3:31:49 PM 100 / 51 ( 71 ) @ 3:31:49 PM 116 / 70 ( 91 ) @ 3:31:49 PM 138 / 70 ( 100 ) @ 3:31:49 PM 149 / 94 ( 120 ) @ 3:31:49 PM 152 / 86 ( 117 ) @ 3:31:49 PM 121 / 64 ( 90 ) @ 3:31:49 PM 139 / 78 ( 106 ) @ 3:31:49 PM 117 / 54 ( 79 ) @ 3:31:49 PM Clinical Evaluation EBL: 5mL-10mL Procedural Details Procedure started. Pre-Procedure Time Out. Identified patient by full name and date of as verbalized by the patient/guarantor. Does the consent match the physician's order: N/A Emergent. Accurate & Complete Informed Consent: N/A Emergent. Inpatient/Outpatient History & Physical on Chart: N/A Emergent. If H&P is completed, is and addenduem needed: N/A Emergent; If yes, is the addendum complete: N/A. Visualize and Verify Site with Patient/Guarantor: N/A. Relevant Radiology Images available: N/A Emergent. Pre-op teaching completed and patient verbalized understanding. The risks, benefits, and alternatives of sedation and/or procedure were discussed by physician. The patient agrees to continue. [facility] Clinical Fraility Score: 4: Vulnerable. Repair Table Operator Indications: ACS > 24 hours. Repair Table Operator Indications: Other. Chest Pain Symptom Assessment: Atypical Angina. Cardiovascular Instability: Yes, if yes, Ventricular Arrhythmias. Correct patient, site and procedure confirmed by cath team. Current diagnosis: Unstable angina. Current diagnosis: NSTEMI. PERRLA. Strong, equal hand drafting layout man bilaterally. Lungs clear x 5 lobes. Physician arrived. Physician scrubbed in. Immediate Pre-Procedure Time Out. Correct Patient: N/A Emergent; Correct Procedure: N/A Emergent; Correct Site: N/A Emergent; Correct Patient Position: N/A Emergent; Correct Supplies: N/A Emergent; Dried Flammable Prep: N/A Emergent; Blood Products Available: N/A Emergent;. AP Pads placed on patient. Lidocaine 1% infiltrated to the right groin. Arterial access obtained with micropuncture set. A 6 nicaraguan JL4 catheter in over wire. Catheter removed over the standard wire. A 6 nicaraguan JR4 catheter in over wire. Current Diagnosis : NSTEMI. glidewire inserted through the catheter. Multiple views taken of right coronary artery. Critical Labs called by the ED. 2 Hour Troponin 804.2 Delta 386.2. Catheter removed over the glide wire. A 5 nicaraguan JL4 catheter in over wire. Supply: 6FR JR4 Guide catheter. Multiple views taken of left coronary artery. Physician review of cine films. Catheter removed over the exchange wire. 6 nicaraguan XB 3.5 guide catheter was inserted over the wire. ACT drawn. Results 138 seconds. Therapeutic limits - pre-heparin administration 90-150 seconds and monitoring heparin during a vascular procedure >250 seconds. Runthrough guidewire was advanced through the guide catheter to lesion in the prox LAD. Inflation number : 1 A AB TREK 2.50X12 RX BALLOON was prepped and advanced across the Prox LAD , then inflated to 8 ESCOBAR for 0:12 seconds. Inflation number: 2 The AB TREK 2.50X12 RX BALLOON was reinflated across the Prox LAD, to 8 ESCOBAR for 0:13 seconds. Results checked. Balloon out. IVUS catheter inserted OTW. IVUS measurents obtained. IVUS catheter out. Inflation Number : 3 A MDT R АЛЕКСАНДР 3.0X30 BERNICE -Lot Number# _[id number] EXP: 10/28/2024 was prepped and advanced across the Prox LAD. The stent was deployed at 12 ESCOBAR for 0:21 seconds. Stent balloon out over wire. Results checked. ACT drawn. Results 218 seconds. Therapeutic limits - pre-heparin administration 90-150 seconds and monitoring heparin during a vascular procedure >250 seconds. IVUS catheter inserted OTW. IVUS measurents obtained. IVUS catheter out. Inflation number : 4 A MDT NC EUPHORA RX 3.24B71MI BALLOON was prepped and advanced across the Prox LAD , then inflated to 12 ESCOBAR for 0:18 seconds. Inflation number: 5 The MDT NC EUPHORA RX 3.93D31VL BALLOON was reinflated across the Prox LAD, to 12 ESCOBAR for 0:13 seconds. Inflation number: 6 The MDT NC EUPHORA RX 3.56M70WN BALLOON was reinflated across the Prox LAD, to 12 ESCOBAR for 0:16 seconds. Balloon out. Results checked. Wire out. Physician review of cine films. Results checked. Runthrough guidewire was advanced through the guide catheter to lesion in the prox LAD. IVUS catheter inserted OTW. IVUS catheter out. Wire out. 6 nicaraguan JR 4 guide catheter was inserted over the wire. Runthrough guidewire was advanced through the guide catheter to lesion in the distal RCA. Wire out. Guide catheter out. ACT drawn. Results 272 seconds. Therapeutic limits - pre-heparin administration 90-150 seconds and monitoring heparin during a vascular procedure >250 seconds. A Right femoral angiogram was performed to determine safe placement of closure device. Lidocaine 1% infiltrated to the right groin. A Angio-Seal VIP ([place]) was successful obtaining hemostatsis at the Right Femoral artery insertion site. Post Procedure: Pulses reassessed and unchanged. PERRLA. Strong, equal hand drafting layout man bilaterally. No VTE prophylaxis required. Medication's Wasted: Nitro = 49.8 mg. Medication's Wasted: Other = Fentanyl 75mg Versed 1.5mg. Total IV fluids: 500 mL. Contrast type used: Omnipaque 300 mgI/mL, 500 mL bottle. Post-op diagnosis: CAD. Complications: None. Estimated blood loss: 5mL-10mL. Responsiveness - Normal response to verbal stimuli; alert and oriented, PERRLA. Airway - Unaffected, no intervention required; spontaneous ventilation. Circulation: W/N/L, pulses unchanged. Nausea/Vomiting: No. Procedure completed. Vital chart was stopped. Access Site Site: Right Femoral artery Sheath Size: 6 Fr Hemostasis Method: Angio-Seal VIP ([employer]) Hemostasis Success: Successful Procedure Medications Start: 7:18 PM Stop: 7:18 PM Medication: Versed Amount: 1 mg Route: I.V. Start: 7:18 PM Stop: 7:18 PM Medication: Fentanyl Amount: 50 mcg Route: I.V. Start: 7:27 PM Stop: 7:27 PM Medication: Heparin Amount: 3000 units Route: I.V. Start: 7:30 PM Stop: 7:30 PM Medication: Versed 1 mg and Fentanyl 25 mcg Amount: 1 Route: I.V. Start: 7:34 PM Stop: 7:34 PM Medication: Heparin Amount: 2000 units Route: I.V. Start: 7:41 PM Stop: 7:41 PM Medication: Fentanyl Amount: 25 mcg Route: I.V. Start: 7:47 PM Stop: 7:47 PM Medication: Heparin Amount: 2000 units Route: I.V. Start: 7:53 PM Stop: 7:53 PM Medication: Heparin Amount: 1000 units Route: I.V. Start: 8:05 PM Stop: 8:05 PM Medication: Versed Amount: 0.5 mg Route: I.V. Start: 8:05 PM Stop: 8:05 PM Medication: Fentanyl Amount: 25 mcg Route: I.V. Start: 8:09 PM Stop: 8:09 PM Medication: Nitrogylcerin Amount: 200 mcg Route: I.A. Start: 8:09 PM Stop: 8:09 PM Medication: Heparin Amount: 1000 units Route: I.V. I, the attending physician, have reviewed and verified all procedure medications. Yes, all medications given per verbal order History/Risk Factors Hypertension: No Dyslipidemia: No Peripheral Arterial Disease (PAD): No Myocardial Infarction (AR): No Obesity: No Renal Disease: No Prior Interventions PCI: Yes CABG: No Valve Surgery: No Report Signatures Finalized by Darron De Luna MD on 03/27/2022 06:36 PM
--- NOTE | 2022-03-13 19:18 | ECG_ITS ---
[facility] Test Date: 2022-03-13 Pat Name: Chalo Alvarenga Department: Room: ICU04 Gender: Male Supervisor Coating: : 1945 Requested By: Brock Marion Order Number: [id number] Sam MD: Cristela Green M.D. Measurements Intervals [place] Rate: 92 P: 31 [place]: 184 QRS: -82 QRSD: 166 T: 62 QT: 412 QTc: 512 Interpretive Statements SINUS RHYTHM RIGHT BUNDLE BRANCH BLOCK LEFT ANTERIOR FASCICULAR BLOCK LEFT VENTRICULAR HYPERTROPHY AND ST-T CHANGE Compared to ECG 03/13/2022 16:09:19 Right bundle-branch block now present Left anterior fascicular block now present Myocardial infarct finding now present First degree AV block no longer present Intraventricular conduction delay no longer present ST (T wave) deviation still present Electronically Signed On 03-13-2022 20:25:51 CDT by Cristela Green M.D. [id number]
[2022-03-13 19:19] LABS: Troponin 5 2HR 804.2 ng/L (0-15); Troponin 5 2HR Delta 386.2 ABS# (0-10)
--- NOTE | 2022-03-13 19:23 | PC.NURSE ---
Addendum entered by Abelardo Adam RN 03/13/22 19:41: Finishing note from earlier: Patient rhythm would go from asystole to tacycardiac to a bradycardiac rhythms back to normal sinus. Patient prepared for cath. lab. A 16fr spencer catheter installed. Original Note: Nurse was preparing to call report to ICU, hen daughter yelled she needed help, that the patient had LOC with snoring type respirations, the episode last a few seconds and had resolved as the nurse entered the room. A few minutes later with nurse in the room the patient started the same type episode and was going into asystole to a tacycardiac.
[2022-03-13 19:27] LABS: INR 1.16 (0.8-1.2)
[2022-03-13 19:40] LABS: Partial Thromboplastin Time 111.8 SECONDS (23.9-36.7)
--- NOTE | 2022-03-13 21:27 | ECG_ITS ---
[facility] Test Date: 2022-03-13 Pat Name: Chalo Alvarenga Department: Room: ICU04 Gender: Male Client Resolution Specialist: : 1945 Requested By: Darron De Luna Order Number: [id number] Sam MD: Cristela Green M.D. Measurements Intervals [place] Rate: 88 P: 51 [place]: 223 QRS: -71 QRSD: 158 T: 69 QT: 406 QTc: 494 Interpretive Statements SINUS RHYTHM WITH FIRST DEGREE AV BLOCK INTRAVENTRICULAR CONDUCTION DELAY [130+ ms QRS DURATION] MARKED ST DEPRESSION, CONSIDER SUBENDOCARDIAL INJURY Intraventricular conduction delay now present Right bundle-branch block no longer present Left anterior fascicular block no longer present Left ventricular hypertrophy no longer present ST (T wave) deviation still present Electronically Signed On 03-14-2022 7:58:07 CDT by Cristela Green M.D. [id number]
[2022-03-13 21:37] LABS: Glucose Point of Care 273 mg/dL (70-110)
[2022-03-13 21:53] LABS: Erythrocyte Sedimentation Rate 29 mm/hr (0-10)
[2022-03-13 22:16] LABS: Estmated Average Glucose 200; Hemoglobin A1C 8.6 % (4.0-6.0)
[2022-03-13 22:28] LABS: C Reactive Protein 16.8 mg/L (0.0-4.9); Chol HDL Ratio 3.02 mg/dL (1.0-5.00); Cholesterol 136 mg/dL (0-200); HDL Cholesterol 45 mg/dL (60-100); LDL Cholesterol Calculated 82 mg/dL (50-129); LDL HDL Ratio 1.82 RATIO (0.00-3.22); Thyroid Stimulating Hormone 0.62 uIU/mL (0.27-4.20); Triglycerides 45 mg/dL (0-150)
[2022-03-13 22:32] LABS: Troponin 5 6HR 901.7 ng/L (0-15)
[2022-03-13 22:33] LABS: Troponin 5 6HR Delta 483.7 ng/L (0-12)
[2022-03-13] MEDS: carvedilol 3.125 mg Tablet PO (22:47)
[2022-03-13] MEDS: insulin lispro 100 unit/1 mL SUBCUT (22:47)
[2022-03-13] MEDS: pantoprazole 40 mg SDV IVP (22:48)
[2022-03-13 23:00] LABS: Glucose Point of Care 328 mg/dL (70-110)
--- NOTE | 2022-03-13 23:18 | ECG_ITS ---
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 Measurements Intervals [place] Rate: 96 P: 62 [place]: 213 QRS: -79 QRSD: 168 T: 67 QT: 399 QTc: 505 Interpretive Statements SINUS RHYTHM WITH FIRST DEGREE AV BLOCK RIGHT BUNDLE BRANCH BLOCK LEFT ANTERIOR FASCICULAR BLOCK [QRS AXIS <= -45, QR IN I, RS IN II] LEFT VENTRICULAR HYPERTROPHY AND ST-T CHANGE ST DEPRESSION, CONSIDER SUBENDOCARDIAL INJURY Compared to ECG 03/13/2022 16:44:04 First degree AV block now present Myocardial infarct finding no longer present ST (T wave) deviation still present Electronically Signed On 03-13-2022 20:24:28 CDT by Cristela Green M.D. [id number]
[2022-03-14] VITALS (178 sets, daily range): BP systolic 98–177; BP diastolic 53–109; PULSE 58–108; RESP 10–34; TEMP 36.7–37; O2SAT 89–98
--- NOTE | 2022-03-14 00:30 | USCV_ITS ---
Chalo Alvarenga Age: 77 Gender: M : 1945 Exam Date: 03/14/2022 00:30 Ordering Phys: Mark Jackson MD Technologist: [email or web address] [place] [facility] [place]ication: Shortness of Breath BP: 137 / 80 HR: 74 Rhythm: Sinus Technical Quality: Adequate MEASUREMENTS (Male / Female) Normal Values 2D ECHO LV Diastolic Diameter PLAX 5.6 cm 4.2 - 5.9 / 3.9 - 5.3 cm LV Systolic Diameter PLAX 3.9 cm IVS Diastolic Thickness 1.5 cm 0.6 - 1.0 / 0.6 - 0.9 cm IVS Systolic Thickness 2.1 cm LVPW Diastolic Thickness 1.5 cm 0.6 - 1.0 / 0.6 - 0.9 cm LVPW Systolic Thickness 1.5 cm LVOT Diameter 2.0 cm LV Ejection Fraction 2D Teich 62.0 % LV Ejection Fraction MOD 2C 16.3 % LV Ejection Fraction 2C AL 21.8 % LA Diameter 4.5 cm LA Width 2.9 cm LA Height 4.1 cm RA Width 3.2 cm RA Height 4.0 cm Aorta at Sinotubular Diameter 2.7 cm IVC Diameter 2.3 cm M-MODE Aortic Annulus Diameter 3.3 cm LA Ao Ratio MM 1.8 MV E Point Septal Separation 1.6 cm DOPPLER AV Peak Velocity 118.0 cm/s LVOT Peak Velocity 73.0 cm/s AV Area Cont Eq vti 1.9 cm squared AV Area Cont Eq pk 2.0 cm squared MV Peak Velocity 110.0 cm/s MV Area PHT 3.5 cm squared Mitral E to A Ratio 0.8 MV E' Velocity 83.0 cm/s Mitral E to LV E' Septal Ratio 18.5 TR Peak Velocity 100.3 cm/s TR Peak Gradient 4.0 mmHg TR Mean Velocity 71.5 cm/s TR Mean Gradient 2.2 mmHg TR Velocity Time Integral 17.9 cm Right Atrial Pressure 10.0 mmHg Pulmonary Artery Systolic Pressu 14.0 mmHg PV Peak Velocity 97.0 cm/s RV Acceleration Time 0.1 s RV Ejection Time 0.3 s RV AcT/ET 0.3 FINDINGS Left Ventricle Left ventricle is mildly dilated. LV systolic function is severely reduced with EF of 30-35%. Severe global hypokinesis is seen. Grade 1 diastolic dysfunction Right Ventricle The right ventricle is normal in size and function. Right Atrium The right atrium is normal in size. Left Atrium The left atrium is dilated Mitral Valve Structurally normal mitral valve without significant stenosis or prolapse. There is mild mitral regurgitation. Aortic Valve Aortic valve is thickened. No significant aortic stenosis. There is no aortic regurgitation. Tricuspid Valve Structurally normal tricuspid valve without significant stenosis or regurgitation. Insufficient TR jet to calculate RVSP Pulmonic Valve Not well visualized Pericardium Normal pericardium without effusion. Aorta Normal ascending aorta dimension. IVC CONCLUSIONS Technically limited quality echocardiogram because of poor ultrasonic windows. Left ventricle is mildly dilated. Swallow function is severely reduced with EF of 30-35% Grade 1 diastolic dysfunction Left atrium is dilated. Mild mitral regurgitation. No comparison studies are available Darron De Luna MD (Electronically Signed) Final Date: 14 Mar 2022 12:52 S
--- NOTE | 2022-03-14 00:30 | USCV_ITS ---
Chalo Alvarenga Age: 77 Gender: M : 1945 Exam Date: 03/14/2022 01:16 Ordering Phys: Mark Jackson MD Technologist: CKDavid [place] [facility] [place]: Shortness of Breath Risk Factors: Previous Vascular Surgery: Right Brachial BP: / Left Brachial BP: / Right Left Velocity (cm/s) Spectral Plaque Velocity (cm/s) Spectral Plaque Syst/Diast Broadening Syst/Diast Broadening 56.20/ 11.00 Prox CCA 71.50 / 9.30 57.30/ 11.00 Mid CCA 52.80 / 6.20 62.80/ 9.90 Distal CCA 58.30 / 11.70 37.50/ 8.80 Prox ICA 83.80 / 18.70 44.10/ 13.20 Mid ICA 56.50 / 12.10 83.80/ 18.70 Distal ICA 58.80 / 15.10 102.50 ECA 100.30 1.33 ICA/CCA 1.17 Antegrade Vertebral Antegrade 26.30/ 9.20 cm/s 30.90/ 6.80 cm/s Tri Subclavian Tri 61.80 57.30 FINDINGS Mild to moderate plaques at the bifurcations and proximal internal carotid arteries bilaterally. Intimal thickening and minimal plaques in the common carotid arteries bilaterally. Antegrade flow in the vertebral arteries bilaterally. Normal Doppler flow velocities in the external carotid, subclavian and vertebral arteries bilaterally CONCLUSIONS Mild to moderate plaques at the bifurcations and proximal internal carotid arteries bilaterally with Doppler features suggesting less than 50% stenosis. Intimal thickening and minimal plaques in the common carotid arteries bilaterally. No similar previous studies are available for comparison Dr Lennox Sidhu MD LOCATED WITHIN [facility] (Electronically Signed) Final Date: 14 Mar 2022 19:14 S
[2022-03-14 02:42] LABS: Basophils % 0.3 %; Hematocrit 40.3 % (42.0-52.0); Hemoglobin 12.1 g/dL (11.7-16.6); Lymphocytes % 6.5 %; Mean Corpuscular Hemoglobin 24.7 pg (28.0-34.0); Mean Corpuscular Volume 82.4 fl (80-94); Mean Platelet Volume 12.3 fL (7.4-10.4); Monocytes # 0.6 10^3/uL (0.2-0.9); Monocytes % 3.7 %; Neutrophils # 13.75 10^3/uL (1.8-7.7); Neutrophils % 89.1 %; Nucleated Red Blood Cells % 0 %; Platelet Count 236 10^3/cmm (130-400); Red Blood Count 4.89 10^6/uL (4.1-5.3); Red Cell Distribution Width 15.1 % (12.1-15.1); White Blood Count 15.4 10^3/uL (4.0-10.0)
[2022-03-14 02:59] LABS: Alanine Aminotransferase 23 U/L (0-41); Albumin Level 3.9 g/dL (3.5-5.2); Alkaline Phosphatase 109 IU/L (40-130); Anion Gap 17.9 (5-19); Aspartate Amino Transferase 90 U/L (0-40); Blood Urea Nitrogen 12 mg/dL (8-23); Calcium 8.7 mg/dL (8.5-10.5); Carbon Dioxide 18 mmol/L (22-29); Chloride 101 mmol/L (98-107); Globulin 2.8 g/dL (1.3-4.6); Glucose 261 mg/dL (65-115); Magnesium 2.3 mg/dL (1.7-2.3); Osmolality Calculated 283 mOsm/kg (285-295); Potassium 4.9 mmol/L (3.5-5.1); Sodium 132 mmol/L (136-145); Total Bilirubin 0.4 mg/dL (0.15-1.2); Total Protein 6.7 g/dL (6.6-8.7)
[2022-03-14] MEDS: aspirin 81 mg EC Tablet PO ×2 (05:58→08:43)
[2022-03-14] MEDS: losartan 50 mg Tablet 25 MG PO (05:58)
[2022-03-14 07:13] LABS: Glucose Point of Care 240 mg/dL (70-110)
--- NOTE | 2022-03-14 07:25 | PM.PN ---
Subjective Subjective: Patient is doing well. Underwent successful emergent revascularization of left main into LAD with BERNICE x 1. Patient denies chest pain or any further headaches. Vitals/I&O/Wt Last Vital Signs Temp 98.0 F 03/13/22 14:48 Pulse 70 03/14/22 06:00 Resp 14 03/14/22 04:35 BP 147/109 03/14/22 05:58 Pulse Ox 93 03/14/22 04:35 03/13/22 03/14/22 03/14/22 22:59 06:59 14:59 Intake Total 1153 / 1153 Output Total 1100 / 1100 400 / 1500 Balance 53 / 53 -400 / -347 Weight last 48 hrs Weight 205 lb Physical Exam Narrative: GENERAL: Patient is alert, awake and oriented x3. [] NECK: No jugular vein distension. [] HEENT: No cyanosis. No icterus. No pallor. [] HEART: Regular S1 and S2. No murmur, rub or gallop. [] LUNGS: Clear to auscultate bilaterally. [] ABDOMEN: Soft, nontender and nondistended. Positive bowel sounds. No guarding, rebound or tenderness. [] CENTRAL NERVOUS SYSTEM: Grossly nonfocal. [] EXTREMITIES: Lower extremities with 1+ edema bilaterally. Pulses palpable in the lower extremities, both dorsalis pedis and posterior tibial. [] Data : 03/15/22 04:18 03/15/22 04:18 A&P Assessment and plan (1) Cardiac arrest with ventricular fibrillation: Status: Acute (2) Non-ST elevation [place] (NSTEMI): Status: Acute (3) CAD (coronary artery disease): Status: Acute (4) Non-insulin dependent type 2 diabetes mellitus: Status: Acute (5) Hyperlipidemia: Status: Acute (6) Hypertension: Status: Acute Plan Patient had presented initially with headaches radiating down to the chest. Troponins were significantly elevated. Given his symptoms had resolved initial plan was to perform coronary angiogram tomorrow however he had brief episodes of V. fib x2. Knotting Machine Operator Portable was emergently activated and coronary angiogram was performed. 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 Left main into proximal LAD has severe stenosis that underwent successful revascularization with BERNICE x1. Continue aspirin and Brilinta for at least 1 year. High intensity statin therapy. ECHO shows severely reduced with EF of severely reduced with EF of 30-35% Switch IV amiodarone to PO today Uptitrating antihypertensive regimen May transfer out of ICU Patient will need LifeVest. Thank you for involving us with care of this patient. We will continue to follow. Please call with questions. Attestations Medical Necessity Statement*: Care expected to cross 2 midnights. Coding Level of Care Code Acute Press Bucker for [facility] Fwd Diagnoses Cardiac arrest with ventricular fibrillation I46.9; I49.01 Non-ST elevation SD (NSTEMI) I21.4 CAD (coronary artery disease) I25.10 Non-insulin dependent type 2 diabetes mellitus E11.9 Hyperlipidemia E78.5 Hypertension I10
[2022-03-14] MEDS: carvedilol 3.125 mg Tablet 6.25 MG PO ×2 (07:49→19:00)
[2022-03-14] MEDS: insulin lispro 100 unit/1 mL SUBCUT ×3 (07:49→17:30)
[2022-03-14] MEDS: HYDROcodone-acetaminophen 10-325 mg Tablet 1 TAB PO (07:54)
[2022-03-14] MEDS: ticagrelor 90 mg Tablet PO ×2 (08:43→17:29)
--- NOTE | 2022-03-14 09:19 | PC.NURSE ---
Greer catheter removed at [address] Jackson verbal order.
--- NOTE | 2022-03-14 11:28 | P.PN_ITS ---
Subjective Subjective: Patient was seen this morning, his daughter is at bedside, he tells me that he is feeling a lot better, did not get much sleep overnight, yesterday he had a urgent cardiac catheterization by Dr. De Luna, his LAD was stented, no headaches this morning Vitals/I&O/Wt Last Vital Signs Temp 98.6 F 03/14/22 07:30 Pulse 68 03/14/22 09:39 Resp 14 03/14/22 08:25 BP 124/73 03/14/22 08:25 Pulse Ox 96 03/14/22 08:25 03/13/22 03/14/22 03/14/22 22:59 06:59 14:59 Intake Total 1153 / 1153 487.317 / 487.317 Output Total 1100 / 1100 400 / 1500 100 / 100 Balance 53 / 53 -400 / -347 387.317 / 387.317 Weight last 48 hrs Weight 92.986 kg Physical Exam Const: COMMON NORMALS: no acute distress and patient oriented x3 Resp: COMMON NORMALS: normal respiratory effort, No retractions, No use of accessory muscles and clear to auscultation bilaterally AUSCULTATION: clear to auscultation bilaterally Cardio: COMMON NORMALS: regular rate, regular rhythm, S1 normal heart sound present and S2 normal heart sound present RATE: regular rate RHYTHM: regular rhythm HEART SOUNDS: S1 normal heart sound present and S2 normal heart sound present GI: COMMON NORMALS: Normal to inspection, nondistended, normoactive bowel sounds present, Soft to palpation and non-tender PALPATION: Yes Soft to palpation Extremity: COMMON NORMALS: no pedal edema Neuro: COMMON NORMALS: patient oriented x3 Psych: COMMON NORMALS: mental status grossly normal Data : 03/14/22 02:24 03/14/22 02:24 A&P Assessment and plan (1) Non-ST elevation [place] (NSTEMI): Status: Acute (2) Bilateral headaches: Status: Acute (3) Non-insulin dependent type 2 diabetes mellitus: Status: Acute (4) Hyperlipidemia: Status: Acute (5) Unstable angina: Status: Acute (6) Non-sustained ventricular tachycardia: Status: Acute Plan Non-ST elevation [place] -History of CAD status post stenting x6 -Patient's presentation is atypical in nature, no isolated chest pain -EKG shows ST depressions in inferior leads and anterior leads -Troponin 901, delta 483 -Developed V. fib/V. tach in the ER taken emergently to Catalyst Recovery Operator, stented to LAD Plan -Admit to ICU -, telemetry monitoring -Monitor for chest pain -Aspirin, statin, low-dose Coreg, Brilinta -Cardiac echo -Lovenox for DVT prophylaxis -CODE STATUS, DNR/DNI, confirmed with patient, at bedside -Heparin for DVT prophylaxis Headaches -Etiology uncertain -Sounds like cluster headaches versus temporal arteritis -Cardiac echo, carotid artery ultrasound -ESR 29 -CT of the head 1.? No evidence of intracranial hemorrhage or mass effect. 2.? Mild small vessel changes. Moderate parenchymal volume loss. 3.? Diffuse pansinusitis similar in appearance to MRI February 05, 2022. Fluid within the maxillary sinuses with dense inspissated secretions in the sphenoid sinus. Partial opacification? frontal sinuses and ethmoid air cells. Chronic bony remodeling suggestive of chronic or recurrent sinusitis. 4.? No other significant findings. -MRI recently done 1.? No evidence of restricted diffusion to suggest acute ischemia. 2.? Mild small vessel changes with mild to moderate parenchymal volume loss. 3.? 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 4.? Paranasal sinusitis with inspissated secretions in the sphenoid sinus. Correlation for sinusitis including fungal sinusitis. 5.? Normal optic chiasm and pituitary infundibulum. 6.? Moderate symmetric atrophy temporal lobes and hippocampal formations. 7.? No hemosiderin on susceptibly weighted images. -If headaches, and will consider oxygen therapy Patient is lumbar spine MRI showed a lobulated soft tissue mass at GE junction we will do a chest x-ray consider CT of the chest Type 2 diabetes mellitus, low-dose sliding scale Hypertension Hyperlipidemia Attestations Medical Necessity Statement*: Patient requires hospitalization for unstable angina, NSTEMI, status postcardiac catheterization, with V. tach, V. 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
[2022-03-14 12:12] LABS: Glucose Point of Care 211 mg/dL (70-110)
[2022-03-14] MEDS: amiodarone 200 mg Tablet 400 MG PO (17:29)
[2022-03-14] MEDS: losartan 50 mg Tablet PO (17:30)
[2022-03-14 17:34] LABS: Glucose Point of Care 232 mg/dL (70-110)
[2022-03-14] MEDS: enoxaparin 40 mg/0.4 mL Syringe SUBCUT (18:06)
--- NOTE | 2022-03-14 18:16 | PC.NURSE ---
Chinyere willingham DC per Dr. De Luna.
[2022-03-14] MEDS: pantoprazole 40 mg SDV IVP (20:01)
[2022-03-14] MEDS: atorvastatin 40 mg Tablet 80 MG PO (20:01)
[2022-03-14 20:09] LABS: Glucose Point of Care 215 mg/dL (70-110)
[2022-03-15] VITALS (35 sets, daily range): BP systolic 89–164; BP diastolic 43–82; PULSE 51–74; RESP 11–27; TEMP 36.6–37.6; O2SAT 87–97; BMI 32.8
[2022-03-15] MEDS: HYDROcodone-acetaminophen 10-325 mg Tablet 1 TAB PO (03:52)
--- NOTE | 2022-03-15 04:52 | PC.NURSE ---
Bladder Scan Throughout the night, patient able to void twice for a total of 275 ml of urine out. Patient states he has a history of urinary retention and usually takes silodosin as a home medication which is unavailable during his hospital stay. Bladder scan performed revealing 188 ml remaining in bladder. Dr. Joshua notified; no new orders received.
[2022-03-15 05:10] LABS: Basophils # 0.1 10^3/uL (0.0-0.1); Basophils % 0.3 %; Eosinophils % 0.2 %; Hematocrit 33.2 % (42.0-52.0); Hemoglobin 10.1 g/dL (11.7-16.6); Lymphocytes # 1.9 10^3/uL (0.8-4.8); Lymphocytes % 9.9 %; Mean Corpuscular HGB Conc 30.4 g/dL (30.0-36.0); Mean Corpuscular Hemoglobin 24.8 pg (28.0-34.0); Mean Corpuscular Volume 81.6 fl (80-94); Mean Platelet Volume 12.8 fL (7.4-10.4); Monocytes # 1.9 10^3/uL (0.2-0.9); Monocytes % 9.6 %; Neutrophils # 15.29 10^3/uL (1.8-7.7); Neutrophils % 79.6 %; Nucleated Red Blood Cells % 0 %; Platelet Count 213 10^3/cmm (130-400); Red Blood Count 4.07 10^6/uL (4.1-5.3); Red Cell Distribution Width 15.3 % (12.1-15.1); White Blood Count 19.2 10^3/uL (4.0-10.0)
[2022-03-15 05:32] LABS: Alanine Aminotransferase 18 U/L (0-41); Albumin Level 3.5 g/dL (3.5-5.2); Alkaline Phosphatase 86 IU/L (40-130); Anion Gap 17.3 (5-19); Aspartate Amino Transferase 33 U/L (0-40); Blood Urea Nitrogen 22 mg/dL (8-23); Calcium 7.9 mg/dL (8.5-10.5); Carbon Dioxide 18 mmol/L (22-29); Chloride 101 mmol/L (98-107); Glucose 167 mg/dL (65-115); Magnesium 2.1 mg/dL (1.7-2.3); Osmolality Calculated 281 mOsm/kg (285-295); Phosphorus 2.9 mg/dL (2.5-4.5); Potassium 4.3 mmol/L (3.5-5.1); Sodium 132 mmol/L (136-145); Total Bilirubin 0.5 mg/dL (0.15-1.2); Total Protein 5.5 g/dL (6.6-8.7)
[2022-03-15] MEDS: losartan 50 mg Tablet PO (06:06)
--- NOTE | 2022-03-15 07:52 | XR_ITS ---
WS: [id number] Portable AP upright chest, 03/15/2022 Clinical Data: sob Comparison: None. Findings: No nodules, masses or effusions are seen. The heart is enlarged. The pulmonary vascularity is not increased. No pneumonia or pneumothorax is seen. Monitor leads are on the chest wall. The diap hragms are flattened. XR/XR chest 1V portable [id number] Impression: Cardiomegaly and hyperinflation.
--- NOTE | 2022-03-15 08:00 | P.PN_ITS ---
Subjective Subjective: Patient is overall doing. No complaints of chest pain or headaches. Wbc count went up. Vitals/I&O/Wt Last Vital Signs Temp 98.4 F 03/15/22 04:00 Pulse 60 03/15/22 05:36 Resp 27 H 03/15/22 04:00 BP 116/63 03/15/22 06:06 Pulse Ox 97 03/15/22 04:00 03/14/22 03/15/22 03/15/22 22:59 06:59 14:59 Intake Total 522.065 / 1369.382 180 / 1549.382 Output Total 275 / 375 Balance 522.065 / 1269.382 -95 / 1174.382 Weight last 48 hrs Weight 222 lb Weight 205 lb Physical Exam Narrative: GENERAL: Patient is alert, awake and oriented x3. [] NECK: No jugular vein distension. [] HEENT: No cyanosis. No icterus. No pallor. [] HEART: Regular S1 and S2. No murmur, rub or gallop. [] LUNGS: Clear to auscultate bilaterally. [] ABDOMEN: Soft, nontender and nondistended. Positive bowel sounds. No guarding, rebound or tenderness. [] CENTRAL NERVOUS SYSTEM: Grossly nonfocal. [] EXTREMITIES: Lower extremities with 1+ edema bilaterally. Pulses palpable in the lower extremities, both dorsalis pedis and posterior tibial. [] Data : 03/16/22 04:20 03/16/22 04:20 A&P Assessment and plan (1) Cardiac arrest with ventricular fibrillation: Status: Acute (2) Non-ST elevation [place] (NSTEMI): Status: Acute (3) CAD (coronary artery disease): Status: Acute (4) Non-insulin dependent type 2 diabetes mellitus: Status: Acute (5) Hyperlipidemia: Status: Acute (6) Hypertension: Status: Acute Plan Patient had presented initially with headaches radiating down to the chest. Troponins were significantly elevated. Given his symptoms had resolved initial plan was to perform coronary angiogram tomorrow however he had brief episodes of V. fib x2. Dyed Raw Stock Blower Feeder was emergently activated and coronary angiogram was performed. 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 Left main into proximal LAD has severe stenosis that underwent successful revascularization with BERNICE x1. Continue aspirin and Brilinta for at least 1 year. High intensity statin therapy. ECHO shows severely reduced with EF of severely reduced with EF of 30-35%. Patient awaiting Lifevest approval Continue PO amiodarone. At time of discharge switch to PO 200mg BID and reduce to 200mg daily in 1 week Blood pressure is better controlled. May transfer out of ICU Thank you for involving us with care of this patient. We will continue to follow. Please call with questions. Attestations Medical Necessity Statement*: Care expected to cross 2 midnights. Coding Level of Care Code Acute Welding Lead Burner for [facility] Diagnoses Cardiac arrest with ventricular fibrillation I46.9; I49.01 Non-ST elevation [place] (NSTEMI) I21.4 CAD (coronary artery disease) I25.10 Non-insulin dependent type 2 diabetes mellitus E11.9 Hyperlipidemia E78.5 Hypertension I10
--- NOTE | 2022-03-15 08:22 | XR_ITS ---
WS: [id number] Lumbar spine, 3 views, 03/15/2022 Clinical Data: pain Comparison: None. Findings: There is slight loss of central vertebral body height of L1 and L2 which may represent superior corti danielle fractures. No subluxation is seen. There is a compression fracture of the T12 vertebral body with loss of 50% of the central vertebral body height. There is degenerative disc narrowing at L5-S1. Ant erior osteoarthritic spurring from L1 through L5 is present.. The transverse processes and SI joints are normal. There is calcification of the wall of the abdominal aorta with no aneurysm. There is contrast materia l in the bladder. XR/XR lumbar spine 2-3V* [id number] Impression: 1. T12 compression fracture. 2. Possible superior cortical fractures of L1 and L2. 3. Degenerative disc narrowing at L5-S1. 4. Osteoarthritis L-1-L5.
[2022-03-15 08:30] LABS: Erythrocyte Sedimentation Rate 17 mm/hr (0-10)
[2022-03-15 08:33] LABS: Glucose Point of Care 163 mg/dL (70-110)
[2022-03-15 08:47] LABS: Procalcitonin 0.16 ng/mL (0-0.5)
[2022-03-15] MEDS: aspirin 81 mg EC Tablet PO (09:37)
[2022-03-15] MEDS: amiodarone 200 mg Tablet 400 MG PO ×2 (09:37→20:08)
[2022-03-15] MEDS: ticagrelor 90 mg Tablet PO ×2 (09:37→20:09)
[2022-03-15] MEDS: insulin lispro 100 unit/1 mL SUBCUT ×2 (09:38→11:12)
[2022-03-15] MEDS: carvedilol 3.125 mg Tablet 6.25 MG PO ×2 (09:38→20:08)
--- NOTE | 2022-03-15 10:21 | PC.NURSE ---
Life Vest Packet and order faxed to [employer] for life vest. Moon from [employer] called and confirmed they received it and will begin the authorization..
[2022-03-15] MEDS: piperacillin-tazobactam 3.375 GM in sodium chloride 0.9% (plus) 50 ML IV ×2 (11:11→20:08)
[2022-03-15 11:12] LABS: Glucose Point of Care 288 mg/dL (70-110)
--- NOTE | 2022-03-15 12:29 | PM.PN ---
Subjective Subjective: Patient was seen this morning, currently on 2 L, afebrile overnight, no chest pain, shortness of breath, no dysuria, no nausea, no vomiting, no abdominal pain, he tells me that the only thing is really bothering him is lower lumbar back pain, he tells me that no one can really figure out why he is having back pain, he has had MRIs Vitals/I&O/Wt Last Vital Signs Temp 98.3 F 03/15/22 07:30 Pulse 61 03/15/22 10:00 Resp 21 H 03/15/22 10:00 BP 140/56 03/15/22 10:00 Pulse Ox 95 03/15/22 09:30 03/14/22 03/15/22 03/15/22 22:59 06:59 14:59 Intake Total 522.065 / 1369.382 180 / 1549.382 300 / 300 Output Total 275 / 375 400 / 400 Balance 522.065 / 1269.382 -95 / 1174.382 -100 / -100 Weight last 48 hrs Weight 100.698 kg Weight 92.986 kg Physical Exam Const: COMMON NORMALS: no acute distress and patient oriented x3 Resp: COMMON NORMALS: normal respiratory effort, No retractions, No use of accessory muscles and clear to auscultation bilaterally AUSCULTATION: clear to auscultation bilaterally Cardio: COMMON NORMALS: regular rate, regular rhythm, S1 normal heart sound present and S2 normal heart sound present RATE: regular rate RHYTHM: regular rhythm HEART SOUNDS: S1 normal heart sound present and S2 normal heart sound present GI: COMMON NORMALS: Normal to inspection, nondistended, normoactive bowel sounds present, Soft to palpation and non-tender PALPATION: Yes Soft to palpation Extremity: COMMON NORMALS: no pedal edema Neuro: COMMON NORMALS: patient oriented x3 Psych: COMMON NORMALS: mental status grossly normal Data : 03/15/22 04:18 03/15/22 04:18 Micro: Microbiology 03/15/22 08:29 Blood Culture - Preliminary Blood SPECIMEN COLLECTED 03/15/22 08:26 Blood Culture - Preliminary Blood SPECIMEN COLLECTED A&P Assessment and plan (1) Non-ST elevation [place] (NSTEMI): Status: Acute (2) Bilateral headaches: Status: Acute (3) Non-insulin dependent type 2 diabetes mellitus: Status: Acute (4) Hyperlipidemia: Status: Acute (5) Unstable angina: Status: Acute (6) Non-sustained ventricular tachycardia: Status: Acute Plan Unstable angina, non-ST elevation [place], ischemic cardiomyopathy Non-ST elevation DE -History of CAD status post stenting x6 -Patient's presentation is atypical in nature, no isolated chest pain -EKG shows ST depressions in inferior leads and anterior leads -Troponin 901, delta 483 -Developed V. fib x2 in the ER taken emergently to Trail Construction Worker, revascularization of left main into LAD with BERNICE x1 Technically limited quality echocardiogram because of poor ?ultrasonic windows. ?Left ventricle is mildly dilated.? Swallow function is severely ?reduced with EF of 30-35% ?Grade 1 diastolic dysfunction ?Left atrium is dilated. ?Mild mitral regurgitation. ?No comparison studies are available Plan -Moved to [facility] -, telemetry monitoring -Monitor for chest pain -Aspirin, statin, low-dose Coreg, Brilinta -Amiodarone daily -LifeVest -Lovenox for DVT prophylaxis -CODE STATUS full code Leukocytosis, white blood cell count 19, primarily neutrophilic -Chest x-ray no focal pneumonia -Pro-Priyank 0.16, CRP 16 -We will obtain a UA -Possible aspiration event during his V. fib V. tach episode we will start Zosyn Lower lumbar back pain 1.? Mild lumbar curve. No acute compression. Slight anterolisthesis L4 on L5. 2.? Moderate to severe central canal stenosis L3-L4 due to disc bulging with facet arthropathy and ligamentum flavum hypertrophy. Slight impingement traversing RIGHT greater than LEFT L4 nerve roots. 3.? RIGHT L3-L4 foraminal protrusion impinges the exiting L3 nerve root with moderate RIGHT foraminal narrowing. 4.? Mild central canal stenosis L4-L5 with grade 1 anterolisthesis. Evidence of prior laminectomy defects at this level. 5.? SAMY disc osteophyte protrusions in the cervical spine at C5-C6 and C6-C7 with mild to moderate central canal stenosis. Recommend further evaluation with cervical spine MRI. 6.? Lobulated soft tissue mass at the GE junction may represent partially visualized intrathoracic stomach but indeterminant. Recommend further evaluation with CT chest. X-ray of lumbar spine showed 1. T12 compression fracture. 2. Possible superior cortical fractures of L1 and L2. 3. Degenerative disc narrowing at L5-S1. 4. Osteoarthritis L-1-L5. ? -We will do CT lumbar, thoracic spine -Pain control increase hydrocodone to 10-325 every 6 hours as needed for pain Headaches -No current headaches -Etiology uncertain -Sounds like cluster headaches versus temporal arteritis -Cardiac echo, carotid artery ultrasound -ESR 29 -CT of the head 1.? No evidence of intracranial hemorrhage or mass effect. 2.? Mild small vessel changes. Moderate parenchymal volume loss. 3.? Diffuse pansinusitis similar in appearance to MRI February 05, 2022. Fluid within the maxillary sinuses with dense inspissated secretions in the sphenoid sinus. Partial opacification? frontal sinuses and ethmoid air cells. Chronic bony remodeling suggestive of chronic or recurrent sinusitis. 4.? No other significant findings. -MRI recently done 1.? No evidence of restricted diffusion to suggest acute ischemia. 2.? Mild small vessel changes with mild to moderate parenchymal volume loss. 3.? 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 4.? Paranasal sinusitis with inspissated secretions in the sphenoid sinus. Correlation for sinusitis including fungal sinusitis. 5.? Normal optic chiasm and pituitary infundibulum. 6.? Moderate symmetric atrophy temporal lobes and hippocampal formations. 7.? No hemosiderin on susceptibly weighted images. -If headaches, and will consider oxygen therapy Type 2 diabetes mellitus, low-dose sliding scale Hypertension Hyperlipidemia Attestations Medical Necessity Statement*: Patient requires hospitalization for ischemic cardiomyopathy, LAD stenting, now with leukocytosis, back pain Coding Level of Care Code Acute Heavy Line Technician for [facility] Fwd Diagnoses Non-ST elevation [place] (NSTEMI) I21.4 Bilateral headaches R51.9 Non-insulin dependent type 2 diabetes mellitus E11.9 Hyperlipidemia E78.5 Unstable angina I20.0 Non-sustained ventricular tachycardia I47.2
[2022-03-15 13:12] LABS: Urine Appearance Hazy (CLEAR); Urine Color Yellow (Yellow)
[2022-03-15 13:13] LABS: Bilirubin Urine Neg (Negative); Blood Urine 2+ (Negative); Glucose Urine UA Trace (Normal); Ketones Urine Negative (Negative); Nitrate Urine Negative (Negative); Protein Urine Neg (Negative); Urobilinogen Urine 1 mg/dL (Negative); pH Urine 5 (5-7)
[2022-03-15 13:14] LABS: Add Urine Microscopic? YES; Leukocyte Esterase Urine 1+ (Negative); RBC Urine 0-4 /hpf (0-2); WBC Urine 0-4 /hpf (0-5)
[2022-03-15 13:15] LABS: Add Urine Culture? Yes; Bacteria Urine TNTC /hpf; Mucus Urine 1+ /hpf; Squamous Epithelial Cell Urine 0-4 /hpf (0-5)
[2022-03-15] MEDS: tamsulosin 0.4 mg Capsule PO (13:26)
[2022-03-15] MEDS: enoxaparin 40 mg/0.4 mL Syringe SUBCUT (20:09)
[2022-03-15 20:19] LABS: Glucose Point of Care 127 mg/dL (70-110)
--- NOTE | 2022-03-15 20:35 | PC.NURSE ---
Bedside report completed with ELOISA Waters.
--- NOTE | 2022-03-15 20:40 | PC.NURSE ---
Pt received minimal care this afternoon due to caring for patient with life threatening condition. VS and Needs/requested monitored as staff able.
[2022-03-15] MEDS: atorvastatin 40 mg Tablet 80 MG PO (20:47)
[2022-03-15] MEDS: pantoprazole 40 mg SDV IVP (20:47)
[2022-03-15] MEDS: temazepam 15 mg Capsule PO (23:39)
[2022-03-16] VITALS (14 sets, daily range): BP systolic 100–133; BP diastolic 44–72; PULSE 50–62; RESP 9–21; TEMP 36.6–36.8; O2SAT 88–97; BMI 32.7
[2022-03-16] MEDS: HYDROcodone-acetaminophen 10-325 mg Tablet 1 TAB PO (01:52)
[2022-03-16 02:12] LABS: Glucose Point of Care 203 mg/dL (70-110)
[2022-03-16] MEDS: piperacillin-tazobactam 3.375 GM in sodium chloride 0.9% (plus) 50 ML IV ×2 (02:33→12:13)
[2022-03-16 04:55] LABS: Basophils # 0.1 10^3/uL (0.0-0.1); Basophils % 0.8 %; Eosinophils # 0.1 10^3/uL (0.0-0.8); Eosinophils % 1.2 %; Hematocrit 41.8 % (42.0-52.0); Hemoglobin 13.2 g/dL (11.7-16.6); Lymphocytes # 1.2 10^3/uL (0.8-4.8); Lymphocytes % 13.2 %; Mean Corpuscular HGB Conc 31.6 g/dL (30.0-36.0); Mean Corpuscular Hemoglobin 25.2 pg (28.0-34.0); Mean Corpuscular Volume 79.8 fl (80-94); Mean Platelet Volume 12.5 fL (7.4-10.4); Monocytes % 10.4 %; Neutrophils # 6.77 10^3/uL (1.8-7.7); Neutrophils % 73.6 %; Nucleated Red Blood Cells % 0 %; Platelet Count 135 10^3/cmm (130-400); Red Blood Count 5.24 10^6/uL (4.1-5.3); Red Cell Distribution Width 15.6 % (12.1-15.1); White Blood Count 9.2 10^3/uL (4.0-10.0)
[2022-03-16 05:06] LABS: Alanine Aminotransferase 23 U/L (0-41); Albumin Level 3.5 g/dL (3.5-5.2); Alkaline Phosphatase 91 IU/L (40-130); Blood Urea Nitrogen 22 mg/dL (8-23); Calcium 7.8 mg/dL (8.5-10.5); Carbon Dioxide 19 mmol/L (22-29); Chloride 104 mmol/L (98-107); Creatinine Clr Calc Pharmacy 72.3618; Globulin 1.5 g/dL (1.3-4.6); Glucose 137 mg/dL (65-115); Magnesium 2.1 mg/dL (1.7-2.3); Osmolality Calculated 287 mOsm/kg (285-295); Phosphorus 3.4 mg/dL (2.5-4.5); Sodium 136 mmol/L (136-145); Total Bilirubin 0.5 mg/dL (0.15-1.2)
[2022-03-16 05:10] LABS: Anion Gap 17.7 (5-19); Aspartate Amino Transferase 33 U/L (0-40); Potassium 4.7 mmol/L (3.5-5.1)
[2022-03-16] MEDS: losartan 50 mg Tablet PO (06:21)
[2022-03-16 07:53] LABS: Glucose Point of Care 158 mg/dL (70-110)
[2022-03-16] MEDS: carvedilol 3.125 mg Tablet 6.25 MG PO (08:05)
[2022-03-16] MEDS: ticagrelor 90 mg Tablet PO (08:06)
[2022-03-16] MEDS: amiodarone 200 mg Tablet 400 MG PO (08:06)
[2022-03-16] MEDS: aspirin 81 mg EC Tablet PO (08:06)
[2022-03-16] MEDS: insulin lispro 100 unit/1 mL SUBCUT ×2 (08:06→12:12)
[2022-03-16] MEDS: tamsulosin 0.4 mg Capsule PO (08:06)
--- NOTE | 2022-03-16 09:00 | PM.PN ---
Subjective Subjective: Patient is doing well. No complaints of chest pain Vitals/I&O/Wt Last Vital Signs Temp 97.9 F 03/16/22 04:00 Pulse 60 03/16/22 08:00 Resp 20 H 03/16/22 07:00 BP 124/57 03/16/22 07:00 Pulse Ox 93 03/16/22 08:00 03/15/22 03/16/22 03/16/22 22:59 06:59 14:59 Intake Total 50 / 350 230 / 580 Output Total 100 / 500 310 / 810 Balance -50 / -150 -80 / -230 Weight last 48 hrs Weight 221 lb 8 oz Weight 222 lb Physical Exam Narrative: GENERAL: Patient is alert, awake and oriented x3. [] NECK: No jugular vein distension. [] HEENT: No cyanosis. No icterus. No pallor. [] HEART: Regular S1 and S2. No murmur, rub or gallop. [] LUNGS: Clear to auscultate bilaterally. [] ABDOMEN: Soft, nontender and nondistended. Positive bowel sounds. No guarding, rebound or tenderness. [] CENTRAL NERVOUS SYSTEM: Grossly nonfocal. [] EXTREMITIES: Lower extremities with 1+ edema bilaterally. Pulses palpable in the lower extremities, both dorsalis pedis and posterior tibial. [] Data : 03/16/22 04:20 03/16/22 04:20 Micro: Microbiology 03/15/22 08:29 Blood Culture - Preliminary Blood NEGATIVE TO DATE 03/15/22 08:26 Blood Culture - Preliminary Blood NEGATIVE TO DATE A&P Assessment and plan (1) Cardiac arrest with ventricular fibrillation: Status: Resolved (2) Non-ST elevation AL (NSTEMI): Status: Resolved (3) CAD (coronary artery disease): Status: Acute (4) Non-insulin dependent type 2 diabetes mellitus: Status: Acute (5) Hyperlipidemia: Status: Acute (6) Hypertension: Status: Acute Plan Patient had presented initially with headaches radiating down to the chest. Troponins were significantly elevated. Given his symptoms had resolved initial plan was to perform coronary angiogram tomorrow however he had brief episodes of V. fib x2. Rail Track Layer was emergently activated and coronary angiogram was performed. RCA is [employer]. Left main into proximal LAD has severe stenosis that underwent successful revascularization with BERNICE x1. Continue aspirin and Brilinta for at least 1 year. High intensity statin therapy. ECHO shows severely reduced with EF of severely reduced with EF of 30-35%. Patient has lifevest now Continue PO amiodarone. Continue amiodarone Blood pressure is better controlled. Outpatient cardiology follow up Thank you for involving us with care of this patient. Please call with questions. Attestations Medical Necessity Statement*: Care expected to cross 2 midnights. Coding Level of Care Code Acute Medical Service Technician for [facility] Diagnoses Cardiac arrest with ventricular fibrillation I46.9; I49.01 Non-ST elevation AL (NSTEMI) I21.4 CAD (coronary artery disease) I25.10 Non-insulin dependent type 2 diabetes mellitus E11.9 Hyperlipidemia E78.5 Hypertension I10
--- NOTE | 2022-03-16 10:30 | CTR_ITS ---
PROCEDURE INFORMATION: Exam: CT Lumbar Spine Without Contrast Exam date and time: 03/16/2022 2:20 PM Age: 77 years old Clinical indication: Low back pain; Patient HX: L1-2 comp fxs fell approx 7 mos ago; Additional info: Fracture TECHNIQUE: Imaging protocol: Computed tomography images of the lumbar spine without contrast. Radiation optimization: All CT scans at this facility use at least one of these dose optimization techniques: automated exposure control; mA and/or kV adjustment per patient size (includes targeted exams where dose is matched to clinical indication); or iterative reconstruction. COMPARISON: MR lumbar spine wo con* [id number] 02/05/2022 7:59 AM RADIATION DOSE METRICS: Total DLP (mGy-cm): 2152 FINDINGS: Vertebrae: There is no fracture. Lumbar vertebra maintain their height. There is no fracture of the posterior elements. L1-L2: Mild, 2 mm, disc bulge. No central or foraminal stenosis. There is mild facet hypertrophy. L2-L3: Mild, 2 mm, disc bulge. Mild facet hypertrophy. No central or foraminal stenosis. L3-L4: Mild, 3 mm, diffuse disc bulge. There is facet arthropathy. There is hypertrophy of the ligamentum flavum. These factors result in moderate central spinal stenosis. There is mild left and moderate right foraminal stenosis. There is bilateral moderate lateral recess stenosis. There is effacement of the fat along the undersurface of the L3 nerve root. L4-L5: There is advanced facet arthropathy with a 4 mm degenerative spondylolisthesis. There is a mild disc bulge. There is hypertrophy of the ligamentum flavum. There is moderate central stenosis. There is severe bilateral foraminal stenosis. L5-S1: Mild disc bulge. There is facet hypertrophy. There is no central or foraminal stenosis. Soft tissues: Unremarkable. CT/CT lumbar spine wo con* [id number] IMPRESSION: 1. No fracture of the lumbar spine. 2. Degenerative findings detailed above resulting in moderate L3-L4 and L4-L5 central stenosis. There is multilevel foraminal stenosis most severe at L4-L5. Details above
--- NOTE | 2022-03-16 10:30 | CTR_ITS ---
PROCEDURE INFORMATION: Exam: CT Thoracic Spine Without Contrast Exam date and time: 03/16/2022 2:17 PM Age: 77 years old Clinical indication: Pain in thoracic spine; Without myelpathy or radiculopathy; Patient HX: T12 comp FX fell approx 7 mos ago; Additional info: T12 fracture TECHNIQUE: Imaging protocol: Computed tomography images of the thoracic spine without contrast. Radiation optimization: All CT scans at this facility use at least one of these dose optimization techniques: automated exposure control; mA and/or kV adjustment per patient size (includes targeted exams where dose is matched to clinical indication); or iterative reconstruction. COMPARISON: MR lumbar spine wo con* [id number] 02/05/2022 7:59 AM RADIATION DOSE METRICS: Total DLP (mGy-cm): 2494.55 FINDINGS: Vertebrae: There is mild anterior compression of the T12 vertebra. There is less than 30% loss of height. This is chronic and unchanged from prior scan. There is no retropulsion. There are no additional thoracic vertebral fractures. There is no fracture of the posterior elements. There is no focal osseous lesion. There are bridging osteophytes resulting in ankylosis from T5 to T7 and from T9 to T11. C6-C7: Spondylosis and disc space narrowing with posterior osteophyte and disc bulge resulting in moderate central spinal stenosis. There is mild to moderate left and more severe right foraminal stenosis. C7-T1: No disc bulge. No central or foraminal stenosis T1-T2: Minimal anterolisthesis. No disc bulge. No central or foraminal stenosis. T2-T3: No significant disc protrusion. No severe spinal canal stenosis. No significant neural foraminal narrowing. T3-T4: No significant disc protrusion. No severe spinal canal stenosis. No significant neural foraminal narrowing. T4-T5: No significant disc protrusion. No severe spinal canal stenosis. No significant neural foraminal narrowing. T5-T6: No significant disc protrusion. No severe spinal canal stenosis. No significant neural foraminal narrowing. T6-T7: No significant disc protrusion. No severe spinal canal stenosis. No significant neural foraminal narrowing. T7-T8: No significant disc protrusion. No severe spinal canal stenosis. No significant neural foraminal narrowing. T8-T9: No significant disc protrusion. No severe spinal canal stenosis. No significant neural foraminal narrowing. T9-T10: No significant disc protrusion. No severe spinal canal stenosis. No significant neural foraminal narrowing. T10-T11: No significant disc protrusion. No severe spinal canal stenosis. No significant neural foraminal narrowing. T11-T12: Mild disc bulge. Facet hypertrophy with mild right foraminal stenosis. No central stenosis. T12-L1: Minimal disc bulge. No central or foraminal stenosis T12-L1: No significant disc protrusion. No severe spinal canal stenosis. No significant neural foraminal narrowing. Mediastinum: There is a moderate hiatal hernia. Pleural space: There are bilateral partly visible pleural effusions. CT/CT thoracic spin wo con* [id number] IMPRESSION: 1. Mild chronic anterior compression of the T12 vertebra. No acute fracture. 2. Mild degenerative findings as above. No central stenosis in the thoracic spine.
[2022-03-16 10:44] LABS: Glucose Point of Care 182 mg/dL (70-110)
--- NOTE | 2022-03-16 10:58 | PC.SOCIAL ---
IMM UPDATED IMM dated and initialed and placed in chart. Copy given to patient
--- NOTE | 2022-03-16 11:30 | P.DS_ITS ---
Discharge Providers Date of Admission: 03/13/22 17:19 Date of Discharge: March 16, 2022 Attending Provider at Admission: Mark Jackson MD Attending Provider at Discharge: Mark Jackson MD Primary Care Provider: KAYLI Nichole Diagnoses at Discharge Discharge Diagnosis (1) Cardiac arrest with ventricular fibrillation: Status: Acute (2) Non-ST elevation NC (NSTEMI): Status: Acute (3) CAD (coronary artery disease): Status: Acute (4) Non-insulin dependent type 2 diabetes mellitus: Status: Acute (5) Hyperlipidemia: Status: Acute (6) Hypertension: Status: Acute Reason for Visit Reason for Visit: HEADACHE W/NAUSEA Hospital Course Hospital Course Chalo Alvarenga is a 77 year old male with a past medical history of idr-hzjeqyr-dnsmxpral type 2 diabetes mellitus, hypertension, hyperlipidemia, CAD status post 6 stents, recent history of severe headaches who presents to [facility] due to severe headaches. Patient was admitted to [facility] for unstable angina, non-ST elevation NC, ischemic cardiomyopathy Non-ST elevation NC -History of CAD status post stenting x6 -Patient's presentation is atypical in nature, no isolated chest pain -EKG shows ST depressions in inferior leads and anterior leads -Troponin 901, delta 483 -Developed V. fib x2 in the ER taken emergently to [facility], status post revascularization of left main into LAD with BERNICE x1 Technically limited quality echocardiogram because of poor ?ultrasonic windows. ?Left ventricle is mildly dilated.? Swallow function is severely ?reduced with EF of 30-35% ?Grade 1 diastolic dysfunction ?Left atrium is dilated. ?Mild mitral regurgitation. ?No comparison studies are available -Was managed in ICU, clinically improved -Discharged with LifeVest, advised of compliance -Discharged on aspirin, Crestor, Brilinta, nitro as needed for chest pain -Follow-up cardiology 1 week -If he has recurrent chest pain go to the emergency room Leukocytosis, white blood cell count 19, primarily neutrophilic, with evidence of UTI -Chest x-ray no focal pneumonia -Pro-Priyank 0.16, CRP 16 -Managed with Zosyn -Discharged on ciprofloxacin Lower lumbar back pain 1.? Mild lumbar curve. No acute compression. Slight anterolisthesis L4 on L5. 2.? Moderate to severe central canal stenosis L3-L4 due to disc bulging with facet arthropathy and ligamentum flavum hypertrophy. Slight impingement traversing RIGHT greater than LEFT L4 nerve roots. 3.? RIGHT L3-L4 foraminal protrusion impinges the exiting L3 nerve root with moderate RIGHT foraminal narrowing. 4.? Mild central canal stenosis L4-L5 with grade 1 anterolisthesis. Evidence of prior laminectomy defects at this level. 5.? SAMY disc osteophyte protrusions in the cervical spine at C5-C6 and C6-C7 with mild to moderate central canal stenosis. Recommend further evaluation with cervical spine MRI. 6.? Lobulated soft tissue mass at the GE junction may represent partially visualized intrathoracic stomach but indeterminant. Recommend further evaluation with CT chest. X-ray of lumbar spine showed 1. T12 compression fracture. 2. Possible superior cortical fractures of L1 and L2. 3. Degenerative disc narrowing at L5-S1. 4. Osteoarthritis L-1-L5. -CT lumbar spine showed ertebrae: There is mild anterior compression of the T12 vertebra. There is less than 30% loss of height. This is chronic and unchanged from prior scan. There is no retropulsion. There are no additional thoracic vertebral fractures. There is no fracture of the posterior elements. There is no focal osseous lesion. There are bridging osteophytes resulting in ankylosis from T5 to T7 and from T9 to T11. C6-C7: Spondylosis and disc space narrowing with posterior osteophyte and disc bulge resulting in moderate central spinal stenosis. There is mild to moderate left and more severe right foraminal stenosis. C7-T1: No disc bulge. No central or foraminal stenosis T1-T2: Minimal anterolisthesis. No disc bulge. No central or foraminal stenosis. T2-T3: No significant disc protrusion. No severe spinal canal stenosis. No significant neural foraminal narrowing.? T3-T4: No significant disc protrusion. No severe spinal canal stenosis. No significant neural foraminal narrowing.? T4-T5: No significant disc protrusion. No severe spinal canal stenosis. No significant neural foraminal narrowing. T5-T6: No significant disc protrusion. No severe spinal canal stenosis. No significant neural foraminal narrowing. T6-T7: No significant disc protrusion. No severe spinal canal stenosis. No significant neural foraminal narrowing. T7-T8: No significant disc protrusion. No severe spinal canal stenosis. No significant neural foraminal narrowing.? T8-T9: No significant disc protrusion. No severe spinal canal stenosis. No significant neural foraminal narrowing.? T9-T10: No significant disc protrusion. No severe spinal canal stenosis. No significant neural foraminal narrowing.? T10-T11: No significant disc protrusion. No severe spinal canal stenosis. No significant neural foraminal narrowing. T11-T12: Mild disc bulge. Facet hypertrophy with mild right foraminal stenosis. No central stenosis. T12-L1: Minimal disc bulge. No central or foraminal stenosis T12-L1: No significant disc protrusion. No severe spinal canal stenosis. No significant neural foraminal narrowing. Mediastinum: There is a moderate hiatal hernia. Pleural space: There are bilateral partly visible pleural effusions. Vertebrae: There is no fracture. Lumbar vertebra maintain their height. There is no fracture of the posterior elements. L1-L2: Mild, 2 mm, disc bulge. No central or foraminal stenosis. There is mild facet hypertrophy. L2-L3: Mild, 2 mm, disc bulge. Mild facet hypertrophy. No central or foraminal stenosis. L3-L4: Mild, 3 mm, diffuse disc bulge. There is facet arthropathy. There is hypertrophy of the ligamentum flavum. These factors result in moderate central spinal stenosis. There is mild left and moderate right foraminal stenosis. There is bilateral moderate lateral recess stenosis. There is effacement of the fat along the undersurface of the L3 nerve root. L4-L5: There is advanced facet arthropathy with a 4 mm degenerative spondylolisthesis. There is a mild disc bulge. There is hypertrophy of the ligamentum flavum. There is moderate central stenosis. There is severe bilateral foraminal stenosis. L5-S1: Mild disc bulge. There is facet hypertrophy. There is no central or foraminal stenosis. Soft tissues: Unremarkable. -We will have patient follow-up with Dr. Crystal as outpatient -Pain control increase hydrocodone to 10-325 every 8 hours as needed for pain, advised to use sparingly Headaches -No current headaches -Etiology uncertain -Sounds like cluster headaches versus temporal arteritis -Cardiac echo, carotid artery ultrasound -ESR 29 -CT of the head 1.? No evidence of intracranial hemorrhage or mass effect. 2.? Mild small vessel changes. Moderate parenchymal volume loss. 3.? Diffuse pansinusitis similar in appearance to MRI February 05, 2022. Fluid within the maxillary sinuses with dense inspissated secretions in the sphenoid sinus. Partial opacification? frontal sinuses and ethmoid air cells. Chronic bony remodeling suggestive of chronic or recurrent sinusitis. 4.? No other significant findings. -MRI recently done 1.? No evidence of restricted diffusion to suggest acute ischemia. 2.? Mild small vessel changes with mild to moderate parenchymal volume loss. 3.? 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 4.? Paranasal sinusitis with inspissated secretions in the sphenoid sinus. Correlation for sinusitis including fungal sinusitis. 5.? Normal optic chiasm and pituitary infundibulum. 6.? Moderate symmetric atrophy temporal lobes and hippocampal formations. 7.? No hemosiderin on susceptibly weighted images. Mild to moderate plaques at the bifurcations and proximal ?internal carotid arteries bilaterally with Doppler features ?suggesting less than 50% stenosis. ?Intimal thickening and minimal plaques in the common carotid ?arteries bilaterally. ?No similar previous studies are available for comparison -No headaches during his inpatient admission, will have patient follow-up with Physical Exam Const: COMMON NORMALS: no acute distress and patient oriented x3 Resp: COMMON NORMALS: normal respiratory effort, No retractions, No use of accessory muscles and clear to auscultation bilaterally AUSCULTATION: clear to auscultation bilaterally Cardio: COMMON NORMALS: regular rate, regular rhythm, S1 normal heart sound present and S2 normal heart sound present RATE: regular rate RHYTHM: regular rhythm HEART SOUNDS: S1 normal heart sound present and S2 normal heart sound present GI: COMMON NORMALS: Normal to inspection, nondistended, normoactive bowel sounds present, Soft to palpation and non-tender PALPATION: Yes Soft to palpation Extremity: COMMON NORMALS: no pedal edema Neuro: COMMON NORMALS: patient oriented x3 Psych: COMMON NORMALS: mental status grossly normal Discharge Data Studies Completed and Pending Completed Studies During Hospitalization Category Date Time Status CT head wo con* [id number] Urgent Cat Scan 03/13/22 15:22 Completed XR chest 1V portable [id number] Stat Exams 03/15/22 07:52 Completed XR lumbar spine 2-3V* [id number] Routine Exams 03/15/22 08:22 Completed CV carotid duplex BI* [id number] Routine Ultrasound 03/14/22 00:30 Completed CV. 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 No evidence of intracranial hemorrhage or mass effect. 2. Mild small vessel changes. Moderate parenchymal volume loss. 3. Diffuse pansinusitis similar in appearance to MRI February 05, 2022. Fluid within the maxillary sinuses with dense inspissated secretions in the sphenoid sinus. Partial opacification frontal sinuses and ethmoid air cells. Chronic bony remodeling suggestive of chronic or recurrent sinusitis. 4. No other significant findings. Chest X-Ray 03/15/22 07:52 Impression: Cardiomegaly and hyperinflation. Lumbar Spine X-Ray 03/15/22 08:22 Impression: 1. T12 compression fracture. 2. Possible superior cortical fractures of L1 and L2. 3. Degenerative disc narrowing at L5-S1. 4. Osteoarthritis L-1-L5. Laboratory Results WBC 9.2 10^3/uL (4.0-10.0) 03/16/22 04:20 RBC 5.24 10^6/uL (4.1-5.3) 03/16/22 04:20 Hgb 13.2 g/dL (11.7-16.6) D 03/16/22 04:20 Hct 41.8 % (42.0-52.0) L 03/16/22 04:20 MCV 79.8 fl (80-94) L 03/16/22 04:20 MCH 25.2 pg (28.0-34.0) L 03/16/22 04:20 MCHC 31.6 g/dL (30.0-36.0) 03/16/22 04:20 RDW 15.6 % (12.1-15.1) H 03/16/22 04:20 Plt Count 135 10^3/cmm (130-400) D 03/16/22 04:20 MPV 12.5 fL (7.4-10.4) H 03/16/22 04:20 Neut % (Auto) 73.6 % 03/16/22 04:20 Lymph % (Auto) 13.2 % 03/16/22 04:20 Rush % (Auto) 10.4 % 03/16/22 04:20 Eos % (Auto) 1.2 % 03/16/22 04:20 Baso % (Auto) 0.8 % 03/16/22 04:20 Neut # (Auto) 6.77 10^3/uL (1.8-7.7) 03/16/22 04:20 Lymph # (Auto) 1.2 10^3/uL (0.8-4.8) 03/16/22 04:20 Rush # (Auto) 1.0 10^3/uL (0.2-0.9) H 03/16/22 04:20 Eos # (Auto) 0.1 10^3/uL (0.0-0.8) 03/16/22 04:20 Baso # (Auto) 0.1 10^3/uL (0.0-0.1) 03/16/22 04:20 Nucleated RBC % (auto) 0 % 03/16/22 04:20 Nucleated RBCs # 0.0 /100WBC 03/16/22 04:20 ESR 17 mm/hr (0-10) H 03/15/22 04:18 PT 15.20 SECONDS (12.1-14.9) H 03/13/22 18:28 INR 1.16 (0.8-1.2) 03/13/22 18:28 APTT 111.8 SECONDS (23.9-36.7) H 03/13/22 18:28 Specimen Type Arterial 03/13/22 18:53 Sample Site Brachial, left 03/13/22 18:53 ABG pH 7.45 (7.35-7.45) 03/13/22 18:53 ABG pCO2 24.3 mmHg (35-45) L 03/13/22 18:53 ABG pO2 121.0 mmHg (80.0-100.0) H 03/13/22 18:53 ABG HCO3 16.7 mmol/L (22-26) L 03/13/22 18:53 ABG O2 Saturation 99.5 03/13/22 18:53 ABG Base Excess -5.8 mmol/L (-2.0-2.0) L 03/13/22 18:53 Devang Test Pos 03/13/22 18:53 A-a O2 Gradient 5.7 mmHg (5-10) 03/13/22 18:53 Hematocrit 37.4 % (42-52) L 03/13/22 18:53 Hgb O2 Saturation 98.2 % (95-100) 03/13/22 18:53 Carboxyhemoglobin 0.7 %THgb (0.4-20.1) 03/13/22 18:53 Methemoglobin 0.7 % (0.4-1.5) 03/13/22 18:53 Total Hemoglobin 12.2 g/dL (14-18) L 03/13/22 18:53 Sodium 135.0 mmol/L (131-143) 03/13/22 18:53 Potassium 4.1 mmol/L (3.5-5.0) 03/13/22 18:53 Glucose 275.0 mg/dL (70-115) H 03/13/22 18:53 Ionized Calcium 1.2 mmol/L (1.1-1.4) 03/13/22 18:53 O2 Delivery Device Nc 03/13/22 18:53 O2 Liters/Min 2.0 % 03/13/22 18:53 FiO2 28.0 % 03/13/22 18:53 Pre Certification Specialist ID Cak 03/13/22 18:53 Sodium 136 mmol/L (136-145) 03/16/22 04:20 Potassium 4.7 mmol/L (3.5-5.1) 03/16/22 04:20 Chloride 104 mmol/L (98-107) 03/16/22 04:20 Carbon Dioxide 19 mmol/L (22-29) L 03/16/22 04:20 Anion Gap 17.7 (5-19) 03/16/22 04:20 BUN 22 mg/dL (8-23) 03/16/22 04:20 Creatinine 1.0 mg/dL (0.7-1.2) 03/16/22 04:20 GFR Calculation Not Reportable 03/16/22 04:20 Glucose 137 mg/dL (65-115) H 03/16/22 04:20 POC Glucose 182 mg/dL (70-110) H 03/16/22 10:37 Estimat Average Glucose 200 03/13/22 21:32 Hemoglobin A1c 8.6 % (4.0-6.0) H 03/13/22 21:32 Calculated Osmolality 287 mOsm/kg (285-295) 03/16/22 04:20 Calcium 7.8 mg/dL (8.5-10.5) L 03/16/22 04:20 Phosphorus 3.4 mg/dL (2.5-4.5) 03/16/22 04:20 Magnesium 2.1 mg/dL (1.7-2.3) 03/16/22 04:20 Total Bilirubin 0.5 mg/dL (0.15-1.2) 03/16/22 04:20 AST 33 U/L (0-40) 03/16/22 04:20 ALT 23 U/L (0-41) 03/16/22 04:20 Alkaline Phosphatase 91 IU/L (40-130) 03/16/22 04:20 Troponin T Gen 5 ng/L 418 ng/L (0-15) H* 03/13/22 15:00 Troponin T 120 Minute 804.2 ng/L (0-15) H 03/13/22 18:28 Delta Troponin T 386.2 ABS# (0-10) H* 03/13/22 18:28 Troponin T Hi Sens 6Hr 901.7 ng/L (0-15) H 03/13/22 21:32 Troponin T Hi Sens 6Hr Delta 483.7 ng/L (0-12) H* 03/13/22 21:32 C-Reactive Protein 16.0 mg/L (0.0-4.9) H 03/15/22 04:18 NT-Pro-B Natriuret Pep 991 pg/mL (0-450) H 03/13/22 15:00 Total Protein 5.0 g/dL (6.6-8.7) L 03/16/22 04:20 Albumin 3.5 g/dL (3.5-5.2) 03/16/22 04:20 Globulin 1.5 g/dL (1.3-4.6) 03/16/22 04:20 Triglycerides 45 mg/dL (0-150) 03/13/22 21:32 Cholesterol 136 mg/dL (0-200) 03/13/22 21: LDL Cholesterol, Calc 82 mg/dL (50-129) 03/13/22 21: HDL Cholesterol 45 mg/dL (60-100) L 03/13/22 21:32 LDL/HDL Ratio 1.82 RATIO (0.00-3.22) 03/13/22 21: Cholesterol/HDL Ratio 3.02 mg/dL (1.0-5.00) 03/13/22 21:32 Procalcitonin 0.16 ng/mL (0-0.5) 03/15/22 04:18 TSH 0.62 uIU/mL (0.27-4.20) 03/13/22 21:32 Urine Color Yellow (Yellow) 03/15/22 12:14 Urine Appearance Hazy (CLEAR) A 03/15/22 12:14 Urine pH 5 (5-7) 03/15/22 12:14 Ur Specific [place] 1.020 (1.005-1.030) 03/15/22 12:14 Urine Protein Neg (Negative) 03/15/22 12:14 Urine Glucose (UA) Trace (Normal) H 03/15/22 12:14 Urine Ketones Negative (Negative) 03/15/22 12:14 Urine Blood 2+ (Negative) H 03/15/22 12:14 Urine Nitrate Negative (Negative) 03/15/22 12:14 Urine Bilirubin Neg (Negative) 03/15/22 12:14 Urine Urobilinogen 1 mg/dL (Negative) H 03/15/22 12:14 Ur Leukocyte Esterase 1+ (Negative) H 03/15/22 12:14 Urine RBC 0-4 /hpf (0-2) H 03/15/22 12:14 Urine WBC 0-4 /hpf (0-5) H 03/15/22 12:14 Ur Squamous Epith Cells 0-4 /hpf (0-5) H 03/15/22 12:14 Amorphous Sediment Not Reportable 03/15/22 12:14 Urine Bacteria Tntc /hpf (NONE) 03/15/22 12:14 Urine Mucus 1+ /hpf 03/15/22 12:14 Vitals Last Vital Signs Temp 98.3 F 03/16/22 11:07 Pulse 59 L 03/16/22 11:07 Resp 17 03/16/22 08:00 BP 113/65 03/16/22 11:07 Pulse Ox 96 03/16/22 11:07 Discharge Plan Discharge Patient Disposition: Home Condition: Stable Prescriptions: New Pacerone 200 mg Tablet 400 mg PO BID 30 Days Qty: 120 0RF Rx Instructions: decrease to 200 twice a day after 1 week carvedilol 6.25 mg tablet 6.25 mg PO Q12H 30 Days Qty: 60 0RF nitroglycerin 0.4 mg Tablet, Sublingual 0.4 mg sublingual Q5M PRN (Reason: Chest Pain) 30 Days Qty: 30 0RF Brilinta 90 mg Tablet 90 mg PO BID 30 Days Qty: 60 0RF Rx Instructions: 340b Cipro 250 mg tablet 250 mg PO BID 5 Days Qty: 10 0RF Continued glimepiride 1 mg tablet 1 mg PO QAM 0RF silodosin 8 mg capsule 8 mg PO QAM 0RF Rx Instructions: must administer with a meal/food losartan 25 mg tablet 25 mg PO QAM 0RF cyclobenzaprine 10 mg tablet 10 mg PO TID PRN (Reason: Muscle Spasm) 0RF metformin 500 mg tablet extended release 24 hr 500 mg PO BID 0RF amitriptyline 25 mg tablet 25 mg PO QAM 0RF aspirin 81 mg Tablet,Delayed Release (Dr/Ec) 81 mg PO QAM 30 Days Qty: 30 0RF rosuvastatin 20 mg tablet 20 mg PO BEDTIME 30 Days Qty: 30 0RF Changed hydrocodone-acetaminophen 10-325 mg tablet 1 tab PO Q8H PRN (Reason: pain) 7 Days Qty: 21 0RF Discontinued hydrocodone-acetaminophen 10-325 mg tablet 1 tab PO DAILY PRN (Reason: pain) 14 Days Qty: 30 0RF kfyhdmkrow-qvqqflvqcpxyf-psqh 50-325-40 mg tablet 1 tab PO Q8H PRN (Reason: Migraine Headache) 0RF terbinafine HCl 250 mg tablet 250 mg PO DAILY 0RF Discharge Orders: Discharge Order (Routine); Ordered 03/16/22 Ordered By: Mark Jackson Referrals: Nii Powers, RN [Primary Care Provider] - 1 week (Please follow-up with your primary doctor in 1 week.) Osito Crystal DO [Physician] - 7-10 days (Please follow-up with Dr. Marah Mcneill in 7-10 days. If you have not heard from them by Friday. Pls call them at . Thanks) Mar Terry, HARVEY [Nurse Practitioner] - 4-7 days (Please follow-up with Mar Terry in 4-7 days. If you have not heard from them by Friday afternoon, please call them at [phone]. Thank You.) Discharge Diet: Cardiac Discharge Activity: Resume usual activity Patient Instructions: Ciprofloxacin (By mouth) (Cipro), Nitroglycerin (By mouth), Amiodarone (By mouth) (Cordarone, Pacerone), Carvedilol (By mouth), Ticagrelor (By mouth) (Brilinta), Urinary Tract Infection in Men (DC), Coronary Intravascular Stent Placement (DC), Chest Pain Stoplight, Opioid Safety, Post Angiogram Home Care Instructions Activity Restrictions/Additional Instructions: - We have discharged you on aspirin and Brilinta for your cardiac stent -Please monitor for bloody or black stools if so go to the emergency room -Do not stop taking aspirin and Brilinta -Discharged you on amiodarone 400 mg twice a day, can decrease to 200 mg twice a day after a week -Follow-up with cardiology in 1 week -For your back pain follow-up with Dr. Crystal -Continue to wear your LifeVest, importance of compliance -If you have recurrent chest pain go to the emergency room -For your urinary tract infection please take antibiotics as prescribed Discharge Attestations Time Spent in Discharge Care*: less than 30 min Quality Metrics Clinical Quality Measures [ Acute Myocardial Infaction { Clinical Trial Participant: No; Contraindication to aspirin: None; Aspirin prescribed; Contraindication to statin: None; Statin prescribed; Contraindication to PCI: None; PCI performed;}] Coding Level of Care Code Acute Chg FW DC note Exam Detailed Diagnoses Cardiac arrest with ventricular fibrillation I46.9; I49.01 Non-ST elevation NC (NSTEMI) I21.4 CAD (coronary artery disease) I25.10 Non-insulin dependent type 2 diabetes mellitus E11.9 Hyperlipidemia E78.5 Hypertension I10
--- NOTE | 2022-03-16 15:00 | PC.NURSE ---
called [facility] in [place] since pt preferred pharmacy in [facility] is close and won't be open until Friday. Pt informed that [facility] is close until Friday but [facility] until [facility]. Pt verbalizes understanding.
--- NOTE | 2022-03-16 15:34 | PC.NURSE ---
Discharge Note Patient discharged to home via private vehicle accompanied by candelario. Discharge instructions reviewed with patient and/or district representative. Mobile pharmacy medications and/or prescriptions provided. Educated pt on his new meds dosing, timing and frequency. 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 Belongings/home medications returned.
== END 2022-03-16 15:39 | disposition home or self-care (01) | DRG 246 ==
LOC: ER 17:33 → ICU 17:39
PROVIDERS: Internal Medicine; Physician Assistant; Admitting Provider Family Medicine; Emergency Provider Emergency Medicine; PCP Nurse Practitioner Family; Visit Provider Family Medicine
PROC: 027034Z Dilation of Coronary Artery, One Artery with Drug-eluting Intraluminal Device, Percutaneous Approach (ICD-10-PCS; principal; 2022-03-13 19:00)
PROC: 027034Z Dilation of Coronary Artery, One Artery with Drug-eluting Intraluminal Device, Percutaneous Approach (ICD-10-PCS; 2022-03-13 19:00)
DX: I46.9 Cardiac arrest, cause unspecified (principal); I21.4 Non-ST elevation (NSTEMI) myocardial infarction; T82.855A Stenosis of coronary artery stent, initial encounter; I50.20 Unspecified systolic (congestive) heart failure; I25.110 Atherosclerotic heart disease of native coronary artery with unstable angina pectoris; N39.0 Urinary tract infection, site not specified; I49.01 Ventricular fibrillation; I47.2 Ventricular tachycardia; E78.5 Hyperlipidemia, unspecified; I11.0 Hypertensive heart disease with heart failure; E11.9 Type 2 diabetes mellitus without complications; Z87.891 Personal history of nicotine dependence; R51.9 Headache, unspecified; M48.061 Spinal stenosis, lumbar region without neurogenic claudication; M47.816 Spondylosis without myelopathy or radiculopathy, lumbar region; I25.5 Ischemic cardiomyopathy; Z79.84 Long term (current) use of oral hypoglycemic drugs; Z79.82 Long term (current) use of aspirin
CPT/HCPCS: 36415; 36416; 36600; 70450; 71045; 72100; 72128; 72131; 80051; 80053; 80061; 81001; 82330; 82805; 82962; 83036; 83735; 83880; 84100; 84145; 84443; 84484; 85025; 85347; 85610; 85651; 85730; 86140; 87040; 87086; 92978; 93005; 93306; 93454; 93880; 94664; 96360; 96361; 96365; 96367; 96372; 96375; 97116; 97161; 97165; 99152; 99153; 99285; C1725; C1753; C1760; C1769; C1874; C1887; C1894; C9113; C9600; J0282; J1100; J1200; J1644; J1650; J1815; J1885; J2250; J2405; J2543; J3010; J3475; J3490; J7030; J7060; Q9967

== ENCOUNTER → 2022-03-28 13:49 | Outpatient (BNVA) | payer MEDICARE, SELFPAY | PROVIDERS: PCP Nurse Practitioner Family; Referring Provider Family Medicine; Visit Provider Orthopaedic Surgery | DX: M54.9 Dorsalgia, unspecified (principal) | CPT/HCPCS: 99203 ==

== ENCOUNTER → 2022-03-29 08:50 | Outpatient (BNVA) | payer MEDICARE, SELFPAY | PROVIDERS: PCP Nurse Practitioner Family; Visit Provider Nurse Practitioner Family | DX: I50.9 Heart failure, unspecified (principal); R06.02 Shortness of breath; R00.1 Bradycardia, unspecified; I44.0 Atrioventricular block, first degree; I45.2 Bifascicular block | CPT/HCPCS: 36415; 80048; 93005; 99214 ==

== ENCOUNTER → 2022-05-30 13:37 | Outpatient (BNVA) | payer MEDICARE, SELFPAY | PROVIDERS: Visit Provider Internal Medicine | DX: I11.0 Hypertensive heart disease with heart failure (principal); I50.9 Heart failure, unspecified; E11.9 Type 2 diabetes mellitus without complications; E78.5 Hyperlipidemia, unspecified; I25.10 Atherosclerotic heart disease of native coronary artery without angina pectoris; Z87.891 Personal history of nicotine dependence; Z79.84 Long term (current) use of oral hypoglycemic drugs | CPT/HCPCS: 99214 ==

== ENCOUNTER → 2022-06-05 09:31 | Outpatient (BNVA) | payer MEDICARE, SELFPAY | PROVIDERS: Visit Provider Nurse Practitioner Family | DX: I11.0 Hypertensive heart disease with heart failure (principal); I50.9 Heart failure, unspecified; Z87.891 Personal history of nicotine dependence; E78.5 Hyperlipidemia, unspecified | CPT/HCPCS: 80048; 83880; 99214 ==

== ENCOUNTER 2022-08-09 13:53 | Outpatient (CLI) | payer MEDICARE, SELFPAY ==
--- NOTE | 2022-08-09 16:00 | USCV_ITS ---
Chalo Alvarenga Age: 77 Gender: M : 1945 Exam Date: 08/09/2022 15:24 Ordering Phys: Darron De Luna M.D ([email or web address]) Technologist: Iván Upton Exam Location: [facility] [place] Indication: ? CHANGE IN EF BP: 132 / 73 HR: 60 Rhythm: Sinus Technical Quality: Adequate MEASUREMENTS (Male / Female) Normal Values 2D ECHO LV Diastolic Diameter PLAX 4.6 cm 4.2 - 5.9 / 3.9 - 5.3 cm LV Systolic Diameter PLAX 3.3 cm IVS Diastolic Thickness 1.4 cm 0.6 - 1.0 / 0.6 - 0.9 cm IVS Systolic Thickness 2.2 cm LVPW Diastolic Thickness 1.6 cm 0.6 - 1.0 / 0.6 - 0.9 cm LVPW Systolic Thickness 1.6 cm LVOT Diameter 2.0 cm LV Ejection Fraction 2D Teich 54.6 % LV Ejection Fraction MOD 2C 66.4 % LV Ejection Fraction 2C AL 66.8 % LA Diameter 3.4 cm Aorta at Sinotubular Diameter 2.9 cm IVC Diameter 1.1 cm M-MODE Aortic Annulus Diameter 3.8 cm LA Ao Ratio MM 1.1 MV E Point Septal Separation 0.8 cm FINDINGS Left Ventricle Normal left ventricular size, systolic function and moderately increased wall thickness, with no diagnostic regional wall motion abnormalities. Left ventricular ejection fraction is estimated at 60-65 %. Moderate concentric left ventricular hypertrophy. Right Ventricle Normal right ventricular size and systolic function. Right Atrium Normal right atrial size. Left Atrium Left atrium not well visualized. Mildly increased left atrial size. Mitral Valve Structurally normal mitral valve. Aortic Valve Aortic valve not well visualized. Tricuspid Valve Structurally normal tricuspid valve. Pulmonic Valve Pulmonic valve not well visualized. Pericardium No pericardial effusion. Aorta Normal size aortic root and proximal ascending aorta. IVC Normal IVC dimension with >50% respiratory change of the inferior vena cava. CONCLUSIONS 1. Normal left ventricular size, systolic function and mildly increased wall thickness, with no diagnostic regional wall motion abnormalities. Left ventricular ejection fraction is estimated at 60-65 %. Mild concentric left ventricular hypertrophy. 2. When compared to study dated 03/14/22. left ventricular systolic function has improved from 30-35% then. Cristela Green MD (Electronically Signed) Final Date: 21 August 2022 08:12 S
[2022-08-29 09:38] LABS: Anion Gap 18.8 (5-19); Blood Urea Nitrogen 25 mg/dL (8-23); Carbon Dioxide 21 mmol/L (22-29); Chloride 101 mmol/L (98-107); Glucose 160 mg/dL (65-115); NT Pro B Type Natriuretic Pept 146 pg/mL (0-450); Osmolality Calculated 292 mOsm/kg (285-295); Potassium 3.8 mmol/L (3.5-5.1); Sodium 137 mmol/L (136-145)
== END 2022-08-09 13:54 | disposition home or self-care (01) ==
LOC: RAD 13:54
PROVIDERS: Nurse Practitioner Family; Visit Provider Internal Medicine
DX: I50.9 Heart failure, unspecified (principal)
CPT/HCPCS: 93308

== ENCOUNTER 2022-08-29 06:00 | Outpatient (CLI) | payer MEDICARE, SELFPAY | END 2022-08-29 06:01 | disposition home or self-care (01) | LOC: LAB 09-09 12:55 | PROVIDERS: Visit Provider Nurse Practitioner Family | DX: I50.9 Heart failure, unspecified (principal); I25.10 Atherosclerotic heart disease of native coronary artery without angina pectoris; I10 Essential (primary) hypertension | CPT/HCPCS: 36415; 80048; 83880 ==

== ENCOUNTER → 2022-11-28 13:43 | Outpatient (BNVA) | payer MEDICARE, SELFPAY | PROVIDERS: Visit Provider Internal Medicine | DX: I11.0 Hypertensive heart disease with heart failure (principal); I50.9 Heart failure, unspecified; E11.9 Type 2 diabetes mellitus without complications; E78.5 Hyperlipidemia, unspecified; I25.10 Atherosclerotic heart disease of native coronary artery without angina pectoris; Z87.891 Personal history of nicotine dependence | CPT/HCPCS: 99214 ==